=== PATIENT | male | born 1940 | race Caucasian/White ===

== ENCOUNTER 2020-10-26 08:52 | Inpatient (IN) | payer MEDICARE, MEDICAID, SELFPAY ==
[2020-10-26] VITALS (46 sets, daily range): BP systolic 99–163; BP diastolic 65–101; PULSE 70–191; RESP 12–36; TEMP 36.1–36.6; O2SAT 90–100
--- NOTE | ~2020-10-26 | XR_ITS ---
EXAMINATION: XR chest 1V portable EXAM DATE: 10/26/2020 11:55 INDICATION: Weakness. COVID positive. TECHNIQUE: Portable AP frontal chest x-ray was obtained. There is no prior study for comparison. FINDINGS: Ill-defined small to moderate right and smaller left-sided acute airspace disease, infectio n or edema. The cardiomediastinal silhouette is prominent but magnified on this AP technique. There i s no pneumothorax suspected. There are no pleural effusions. The bones are osteopenic. There are bon y degenerative changes. IMPRESSION: Small to moderate right, small left acute edema or pneumonia. Reviewed, dictated and finalized at location B. OUND SALES REPRESENTATIVE
--- NOTE | ~2020-10-26 | US_ITS ---
EXAMINATION: US renal BI DATE: 10/26/2020 15:32 INDICATION: Acute kidney injury TECHNIQUE: Multiple grayscale and Doppler ultrasound images of the kidneys were obtained. COMPARISON: None. FINDINGS: The right kidney measures 10.5 x 5.0 x 5.4 cm. The left kidney measures 11.7 x 4.7 x 6.6 cm . The kidneys demonstrate increased parenchymal echogenicity. There is no hydronephrosis. The bladder is decompressed by Walsh catheter. IMPRESSION: 1. Medical renal disease. Reviewed, dictated and finalized at location A. GAGE FIELD INSPECTOR IMPRESSION: 1. Medical renal disease.
--- NOTE | ~2020-10-26 | CT_ITS ---
EXAMINATION: CT brain wo con EXAM DATE: 10/26/2020 10:07 INDICATION: Change of mental status. Altered mental status. TECHNIQUE: Spiral CT of the head was performed without contrast. Axial, coronal and sagittal images were reviewed. The dose-length product (DLP) for this examination was 681.00 mGy-cm. The exposure w as tailored according to patient size, and iterative reconstruction (ASIR) was used as additional dos e reduction technique. There is no prior study for comparison. FINDINGS: There is no acute intraparenchymal hemorrhage. No evidence of intraparenchymal brain mass lesion. No evidence of acute infarction. Please note that initial head CT has limited sensitivity f or small or acute infarctions. There is moderate periventricular and subcortical hypodensity, nonspec ific but probably related to small vessel ischemic disease. There is moderate prominence of the sul ci and ventricles related to cerebral atrophy. There is intracranial carotid arteriosclerosis. The re are no extra-axial collections. There is no mass effect or midline shift. Patient has had bilate ral ocular lens surgery. Soft tissue is unremarkable. The visualized sinuses and mastoid air cells are well aerated. IMPRESSION: 1. No acute intracranial findings. 2. Chronic age related findings. Reviewed, dictated and finalized at location B. ICK BOAT RUNNER
--- NOTE | ~2020-10-26 | XR_ITS ---
EXAMINATION: XR abdomen obstructive series DATE: 10/26/2020 21:05 INDICATION: Abdominal pain TECHNIQUE: Upright and supine views of the abdomen were obtained. COMPARISON: None. FINDINGS: The bowel gas pattern is nonspecific. No dilated loops of bowel are evident. There is no fr ee intraperitoneal gas. Calcified atherosclerosis is noted. There is mild osteoarthritis of the hips. Moderate lumbar spondylosis is noted. IMPRESSION: 1. Nonspecific bowel gas pattern without acute findings. Reviewed, dictated and finalized at location A. R PUMPING STATION ENGINEER
--- NOTE | 2020-10-26 08:58 | ECG_ITS ---
Measurements Intervals [place] Rate: 179 P: ID: 0 QRS: 15 QRSD: 74 T: 73 QT: 226 QTc: 390 Interpretive Statements ATRIAL FIBRILLATION WITH RAPID VENTRICULAR RESPONSE BASELINE ARTIFACT- I, III, AVR, AVL, AVF ABNORMAL ECG Electronically Signed On 10-26-2020 10:23:09 QUALITATIVE EXECUTIVE RESEARCHER by Ruben Ramirez D.O.
[2020-10-26] MEDS: dilTIAZem HCl INJ 25 MG/5 ML VIAL 10 MG IV PUSH (09:17)
[2020-10-26 09:19] LABS: Basophils Percent Auto 0.1 % (0.2-1.2); Hematocrit 57.4 % (42.0-52.0); Hemoglobin 18.1 g/dL (14.0-18.0); Immature Granulocyte Absolute 0.11 K/mm3 (0.00-0.031); Immature Granulocyte Percent A 0.7 % (0-0.5); Lymphocytes Absolute Auto 1.45 K/mm3 (0.9-3.2); Lymphocytes Percent Auto 8.7 % (18.3-44.2); Mean Corpuscular HGB Conc 31.5 g/dl (32-36); Mean Corpuscular Hemoglobin 28.4 pg (26-34); Mean Corpuscular Volume 90.1 fl (80-100); Mean Platelet Volume 9.6 fl (7.4-10.4); Monocytes Percent Auto 5.8 % (2.6-8.5); Neutrophils Absolute Auto 14.1 K/mm3 (1.3-6.7); Neutrophils Percent Auto 84.7 % (45.5-73.1); Platelet Count Result 347 k/mm3 (150-375); Red Blood Count 6.37 M/mm3 (4.6-6.20); Red Cell Distribution Width 16.8 % (11.5-14.5); White Blood Count 16.6 K/mm3 (4.5-10.0)
[2020-10-26 09:31] LABS: Alanine Aminotransferase 16 U/L (4-50); Albumin Level 3.8 g/dL (3.5-5.1); Alkaline Phosphatase 138 U/L (38-126); Anion Gap 17 mmol/L (8-16); Aspartate Amino Transferase 32 U/L (17-59); Bilirubin,Total 1.2 mg/dL (0.2-1.3); Blood Urea Nitrogen 63 mg/dL (9-20); Calcium 9.2 mg/dL (8.4-10.2); Carbon Dioxide 28 mmol/L (22-30); Chloride 108 mmol/L (98-107); Estimated CRCL calculation 21 ml/min; Estimated Glomerular Filt Rate 26; Glucose 136 mg/dL (75-110); Potassium 3.8 mmol/L (3.4-5.0); Sodium 153 mmol/L (137-145)
--- NOTE | 2020-10-26 09:43 | PC.NURSE ---
Pt's family reports that he is extremely hard of hearing even when speaking closely to his ear. family also reports that pt has long hx of dilated pupil.
[2020-10-26 09:53] LABS: Add Urine Microscopic? YES; Appearance Urine Cloudy (Clear); Bacteria Urine 4+ /hpf; Bilirubin Urine Negative (Negative); Blood Urine 3+ (Negative); Color Urine Red (Yellow); Glucose Urine UA Negative (Negative); Hyaline Casts Urine 50+ /lpf; Ketones Urine Negative (Negative); Leukocyte Esterase Ur 3+ LEU/UL (Negative); Mucus Urine Heavy /lpf; Nitrate Urine Negative (Negative); Protein Urine 2+ mg/dL (Negative); RBC Urine >75 /hpf (0-2); Specific Grav Ur 1.009 (1.001-1.035); Squamous Epithelial Cell Urine Many /hpf (Few); Urobilinogen Urine Negative mg/dL (<2.0); WBC Clumps Urine Present /HPF; WBC Urine >75 /hpf
--- NOTE | 2020-10-26 09:54 | ED.GENADULT ---
HPI - General Adult General Chief complaint: Altered Mental Status Stated complaint: AMS Time Seen by Provider: 10/26/20 09:06 Source: EMS Mode of arrival: EMS Limitations: dementia History of Present Illness HPI narrative: 80 years old white male came from skilled nursing because of increased confusion over the last 2 hours prior to arrival. Patient mental status baseline is confusion and disorientation. Patient also not been eating or drinking well over the last few days. Patient is Covid positive on October 13. The skilled nursing denies any history of fever, chills, nausea, vomiting. Patient usually does not use oxygen. Currently on 2 L with oxygenation up to 96% Patient also have chronic indwelling Walsh catheter. Currently patient is full code. I spoke to the patient daughter who trying to change the CODE STATUS to DNR in the next few hours. Related Data Home Medications Medication Instructions Recorded Confirmed buspirone mg 10/26/20 collagenase clostridium histo. TOPICAL 10/26/20 [Santyl] diltiazem HCl PO 10/26/20 finasteride mg 10/26/20 gabapentin 10/26/20 hydrocodone-acetaminophen 10/26/20 omeprazole 10/26/20 pentoxifylline mg PO 10/26/20 potassium chloride meq PO 10/26/20 tamsulosin mg PO 10/26/20 warfarin 10/26/20 warfarin 10/26/20 warfarin 10/26/20 Allergies Allergy/AdvReac Type Severity Reaction Status Date / Time No Known Allergies Allergy Verified 10/26/20 09:03 Review of Systems Review of Systems: ROS unobtainable: Yes unobtainable due to medical condition [facility] Past Medical History Medical History (Updated 10/26/20 @ 12:23 by Dwaine Osorio MD) Atrial fibrillation with rapid ventricular response Dementia Hypertension Social History Social History (Updated 10/26/20 @ 11:01 by Dwaine Osorio MD) Social History: Patient does not smoke or drink or use drugs Second hand tobacco smoke exposure: No Gender identity (if verbalized by the patient): Male Exam Narrative: Exam Narrative: General appearance: Well-developed, malnourished Skin: Pale Head: Normocephalic, nontraumatic Eyes: Clear conjunctiva ENT: Oropharynx normal, ears normal, nose normal Neck: Supple, nontender Chest and respiratory: Airway patent, no respiratory distress, no accessory muscle use Heart: Tachycardia, irregular irregularity Abdomen: Soft, nontender, no organomegaly, quiet bowel sounds Vascular: Normal peripheral pulses, normal capillary refill. Musculoskeletal: Normal range of motion, nontender back Neurologic: Responding only to painful stimulation Course Course Emergency Course: Improving Vital Signs Vital signs: Vital Signs Pulse Rate 190 H 10/26/20 08:57 Respiratory Rate 30 H 10/26/20 08:57 Pulse Oximetry 94 10/26/20 08:57 Temperature 36.1 C L 10/26/20 09:09 Pulse Rate 146 H 10/26/20 09:46 Respiratory Rate 26 H 10/26/20 09:46 Blood Pressure 114/65 10/26/20 09:46 Pulse Oximetry 99 10/26/20 09:46 Medical Decision Making MDM Narrative Medical decision making narrative: Increased confusion, lethargy, status post Covid infection October 13. Labs, EKG, chest x-ray, IV fluid ordered. Further plan to follow Differential Diagnosis Differential Diagnosis: A. fib with RVR, urinary tract infection, electrolyte imbalance, dehydration, pneumonia Vital Signs Vital Signs: Vital Signs Pulse Rate 190 H 10/26/20 08:57 Respiratory Rate 30 H 10/26/20 08:57 Pulse Oximetry 94 10/26/20 08:57 Temperature 36.1 C L 10/26/20 09:09 Pulse Rate 146 H 10/26/20 09:46 Respiratory Rate 26 H 10/26/20 09:46 Blood Pressure 114/65 10/26/20 09:46 Pulse Oximetry 99 12/2
[2020-10-26] MEDS: SODIUM CHLORIDE 0.9% IV 1,000 ML 999 ML IV CONT (10:15)
[2020-10-26 11:57] LABS: Lactic Acid Reflex 3.6 mmol/L (0.7-2.1)
[2020-10-26 11:58] LABS: Partial Thromboplastin Time 53.8 SECONDS (22.3-36.8)
[2020-10-26 12:00] LABS: CRP 4.4 mg/dL (<1.0)
[2020-10-26 12:25] LABS: INR 9.4
--- NOTE | 2020-10-26 13:22 | PM.IMHP ---
H&P: HPI History of Present Illness Date/Time: 10/26/20 13:22 Chief Complaint: altered mental status Narrative: Rayshawn Hay is a 80 year old male with dementia and HTN brought into the ED from the [facility] after being found more confused. He is awake but nonverbal and thus unable to provide history. Per the ED notes, patient had: increased confusion over the last 2 hours prior to arrival. Patient mental status baseline is confusion and disorientation. Patient also not been eating or drinking well over the last few days. Patient is COVID positive on October 13. The [facility]pc denies any history of fever, chills, nausea, vomiting. Patient usually does not use oxygen. Currently on 2 L with oxygenation up to 96%. Patient also have chronic indwelling Walsh catheter. Currently patient is full code. I spoke to the patient daughter who trying to change the CODE STATUS to DNR in the next few hours. In the ED, patient was hypothermic with tachycardia and tachypnea. He was noted to have AFib with RVR, UTI, hypernatremia and renal failure. CT brain showing no acute findings. CXR showing R>L airspace disease. INR 9.4. AG 17 with Lactic of 3.6. Treated with Rocephin and Azithromycin, IV fluids and started on Diltiazem drip. Patient admitted to IMU for further care. Spoke with dtr. Patient does speak but does have [place]. She last saw him about 2 weeks ago. Patient more belligerent 7-10 days ago and not eating past week. He was on abx for the left foot wound already. Over the weekend, some improvement but still not eating. Urine was concentrated. Overnight, the oxygen level dropped and patient very lethargic which prompted transfer to ED. Patient does have frequent UTIs. Has chronic Walsh for BPH and chronic AFib on Warfarin. Review of Systems Review of Systems: ROS unobtainable: Yes unobtainable due to mental status PMFSH Past Medical History Medical History (Updated 10/26/20 @ 14:49 by Joao Mccarthy MD) Atrial fibrillation with rapid ventricular response BPH w urinary obs/LUTS Dementia Hypertension Surgical History Surgical History (Updated 10/26/20 @ 14:32 by Joao Mccarthy MD) Hx of eye surgery Left with chronic dilation Family History Family History Mother Heart disease Diabetes mellitus Social History Social History (Updated 10/26/20 @ 14:37 by Joao Mccarthy MD) Social History: Patient is a lifelong nonsmoker. . Lives in [facility] x 18 months. No drug use or hx of alcohol abuse. Full code. No POA but Kamilla Marie is surrogate. Smoking status: Unknown if ever smoked Second hand tobacco smoke exposure: No Alcohol intake: unknown Substance use: unknown Gender identity (if verbalized by the patient): Male Spiritual care concerns: No Meds Home Medications and Allergies Home Medications Medication Instructions Recorded Confirmed Type acetaminophen 325 mg PO Q4H PRN 10/26/20 10/26/20 History alprazolam 0.25 mg PO DAILY 10/26/20 10/26/20 History alprazolam 0.25 mg PO Q6H PRN 10/26/20 10/26/20 History buspirone 5 mg PO BID 10/26/20 10/26/20 History collagenase clostridium histo. 1 applic TOPICAL DAILY 10/26/20 10/26/20 History [Santyl] diltiazem HCl 240 mg PO DAILY 10/26/20 10/26/20 History docusate sodium 100 mg PO DAILY 10/26/20 10/26/20 History finasteride 5 mg PO DAILY 10/26/20 10/26/20 History gabapentin 100 mg PO HS 10/26/20 10/26/20 History hydrocodone-acetaminophen 1 tablet PO BID 10/26/20 10/26/20 History hydrocodone-acetaminophen 1 tablet PO DAILY PRN 10/26/20 10/26/20 History melatonin 5 mg PO HS 10/26/20 10/26/20 History omeprazole 10 mg PO DAILY 10/26/20 10/26/20 History pentoxifylline 400 mg PO TIDWM 10/26/20 10/26/20 History polyethylene glycol 3350 [Miralax] 17 g PO DAILY PRN 10/26/20 10/26/20 History potassium chloride 20 meq PO DAILY 10/26/20 10/26/20 History psyllium [Metamu
--- NOTE | 2020-10-26 13:35 | PC.NURSE ---
This patient, Rayshawn Hay, was admitted to IMU Room 202-01. Patient/family oriented to hospital policies and general routines including ID bracelet, bed and alarms, visiting hours, pain management, procedures, bathroom and other care routines, personal items, smoking policy, room service/diet, and visiting hours. Information on how to activate the Rapid Response Team has been discussed. Patient/Family are encouraged to report perceived risks to care and to ask questions if they do not understand what they are told or what they should do.
[2020-10-26 14:40] LABS: Reflex Lactic Acid Yes or No Add Lactic
[2020-10-26] MEDS: SODIUM CHLORIDE 0.9% IV 1,000 ML 125 ML IV CONT (14:50)
[2020-10-26 15:19] LABS: Lactic Acid 1.7 mmol/L (0.7-2.1)
[2020-10-26 15:36] LABS: Anion Gap 8 mmol/L (8-16); Blood Urea Nitrogen 63 mg/dL (9-20); Calcium 8.2 mg/dL (8.4-10.2); Carbon Dioxide 28 mmol/L (22-30); Chloride 112 mmol/L (98-107); Estimated CRCL calculation 27 ml/min; Estimated Glomerular Filt Rate 34; Glucose 193 mg/dL (75-110); Potassium 2.9 mmol/L (3.4-5.0); Sodium 148 mmol/L (137-145)
[2020-10-26] MEDS: PHYTONADIONE INJ 10 MG/ML AMP SUB-Q (16:11)
[2020-10-27] VITALS (17 sets, daily range): BP systolic 101–113; BP diastolic 54–71; PULSE 79–95; RESP 14–20; TEMP 35.9–36.6; O2SAT 88–98; BMI 20.2
[2020-10-27] MEDS: SODIUM CHLORIDE 0.9% IV 1,000 ML 125 ML IV CONT ×2 (03:56→10:40)
[2020-10-27 06:40] LABS: Basophils Percent Auto 0.1 % (0.2-1.2); Hematocrit 48.7 % (42.0-52.0); Hemoglobin 15.3 g/dL (14.0-18.0); Immature Granulocyte Absolute 0.08 K/mm3 (0.00-0.031); Immature Granulocyte Percent A 0.6 % (0-0.5); Lymphocytes Absolute Auto 0.91 K/mm3 (0.9-3.2); Lymphocytes Percent Auto 6.6 % (18.3-44.2); Mean Corpuscular HGB Conc 31.4 g/dl (32-36); Mean Corpuscular Hemoglobin 28.2 pg (26-34); Mean Corpuscular Volume 89.9 fl (80-100); Mean Platelet Volume 9.6 fl (7.4-10.4); Monocytes Absolute Auto 0.7 K/mm3 (0.1-0.6); Monocytes Percent Auto 5.1 % (2.6-8.5); Neutrophils Absolute Auto 12.1 K/mm3 (1.3-6.7); Neutrophils Percent Auto 87.6 % (45.5-73.1); Platelet Count Result 211 k/mm3 (150-375); Red Blood Count 5.42 M/mm3 (4.6-6.20); Red Cell Distribution Width 15.6 % (11.5-14.5); White Blood Count 13.8 K/mm3 (4.5-10.0)
[2020-10-27 06:52] LABS: Alanine Aminotransferase 11 U/L (4-50); Albumin Level 2.7 g/dL (3.5-5.1); Alkaline Phosphatase 94 U/L (38-126); Anion Gap 5 mmol/L (8-16); Aspartate Amino Transferase 24 U/L (17-59); Blood Urea Nitrogen 53 mg/dL (9-20); Carbon Dioxide 30 mmol/L (22-30); Chloride 114 mmol/L (98-107); Estimated CRCL calculation 37 ml/min; Estimated Glomerular Filt Rate 53; Glucose 127 mg/dL (75-110); Magnesium 2.4 mg/dL (1.6-2.3); Phosphorus 2.8 mg/dL (2.5-4.5); Potassium 3.6 mmol/L (3.4-5.0); Sodium 149 mmol/L (137-145)
[2020-10-27 07:13] LABS: INR 4.9; Prothrombin Time 46.2 Seconds (11.1-14.7)
[2020-10-27 07:58] LABS: Folic Acid 6.3 ng/mL (2.76->20)
[2020-10-27] MEDS: SILVERGEL (ELTA) 45 ML 1 APPLIC TOPICAL (10:40)
--- NOTE | 2020-10-27 11:26 | PM.IMPN ---
Progress Note: A&P Assessment and Plan (1) Sepsis: Code(s): A41.9 - Sepsis, unspecified organism Status: Acute Assessment and Plan: On admission with tachycardia, encephalopathy, tachypnea, leukocytosis and lactic acidosis. Sources most likely urinary but consider also pneumonia. Abdominal pain noted and more likely related to pyelonephritis and KUB neg. Patient will be continued on IV fluids here. Repeat lactic acid normal Continue IV antibiotics. . Cr 1.3 and Na 149. Continue IV fluids. Resume home meds when more awake and alert. May need speech to see change to .45Nacl (2) Atrial fibrillation with rapid ventricular response: Code(s): I48.91 - Unspecified atrial fibrillation Status: Acute Assessment and Plan: Heart rate better controlled with the IV diltiazem. Continue IV diltiazem for now. Will need to assess swallowing function prior to starting oral medications. May need to increase diltiazem since where currently under treating him when considering his home dose. INR is supratherapeutic. but down to 4.9 today. Secondary to sepsis and poor po intaked (3) Kidney failure: Qualifiers: Renal failure chronicity: unspecified chronicity Qualified Code(s): N19 - Unspecified kidney failure Code(s): N19 - Unspecified kidney failure Status: Acute Assessment and Plan: BUN 53 with and creatinine 1.3 with ratio greater than 20 to suggest pre renal azotemia. Continue IV fluids. renal ultrasound no obstruction. Walsh catheter secured. Monitor urine output closely. (4) Urinary tract infection associated with indwelling urethral catheter: Qualifiers: Encounter type: initial encounter Qualified Code(s): T83.511A - Infection and inflammatory reaction due to indwelling urethral catheter, initial encounter; N39.0 - Urinary tract infection, site not specified Code(s): T83.511A - Infection and inflammatory reaction due to indwelling urethral catheter, initial encounter; N39.0 - Urinary tract infection, site not specified Status: Acute Assessment and Plan: Complicated UTI with chronic indwelling Walsh catheter. UA consistent with UTI. Urine and blood cultures collected. Continue Rocephin. . (5) Hypernatremia: Code(s): E87.0 - Hyperosmolality and hypernatremia Status: Acute Assessment and Plan: Sodium 149 today. Suspect related to dehydration. IV fluids continue and change to .45 Nacl now that rehydated with high Na (6) Pneumonia: Qualifiers: Laterality: left Lung location: lower lobe of lung Pneumonia type: due to unspecified organism Qualified Code(s): J18.9 - Pneumonia, unspecified organism Code(s): J18.9 - Pneumonia, unspecified organism Status: Acute Assessment and Plan: Chest x-ray was reviewed. Patient may have aspiration pneumonia especially if he was becoming weaker over the past 7-10 days. Continue IV fluids. NPO status. Speech therapy to evaluate. Continue Rocephin and azithromycin for now but consider covering for aspiration if there is evidence of dysphagia or other concerns. Currently 100% on 2 L. wean oxygen as tolerated. (7) Coagulopathy: Code(s): D68.9 - Coagulation defect, unspecified Status: Acute Assessment and Plan: PT and PTT are elevated with an INR of 9.4 on admission . Related to his warfarin. No evidence of acute blood loss. Which is more indicative of dehydration. INR falling with rehydration. Had one dose of Vit K . Daily INR. (8) Dementia: Code(s): F03.90 - Unspecified dementia without behavioral disturbance Status: Acute Assessment and Plan: Patient is alert and nonverbal today. Daughter states patient does speak at times. Patient probably encephalopathic related to above. This should improve with above treatment. (9) Hypertension: Code(s): I10 - Essential (primary)
[2020-10-27] MEDS: THIAMINE HCL 200 MG/2 ML VIAL 100 MG IV PUSH (12:36)
[2020-10-27] MEDS: SODIUM CHLORIDE 0.45% 1,000 ML 100 ML IV CONT (20:06)
[2020-10-28] VITALS (15 sets, daily range): BP systolic 98–122; BP diastolic 49–70; PULSE 66–99; RESP 16–20; TEMP 36–36.6; O2SAT 90–100
[2020-10-28] MEDS: SODIUM CHLORIDE 0.45% 1,000 ML 100 ML IV CONT ×2 (05:42→20:01)
[2020-10-28 06:39] LABS: Basophils Percent Auto 0.2 % (0.2-1.2); Hematocrit 40.9 % (42.0-52.0); Hemoglobin 12.8 g/dL (14.0-18.0); Immature Granulocyte Absolute 0.19 K/mm3 (0.00-0.031); Immature Granulocyte Percent A 1.4 % (0-0.5); Lymphocytes Absolute Auto 1.21 K/mm3 (0.9-3.2); Lymphocytes Percent Auto 9.2 % (18.3-44.2); Mean Corpuscular HGB Conc 31.3 g/dl (32-36); Mean Corpuscular Hemoglobin 27.9 pg (26-34); Mean Corpuscular Volume 89.1 fl (80-100); Monocytes Absolute Auto 0.7 K/mm3 (0.1-0.6); Monocytes Percent Auto 5.3 % (2.6-8.5); Neutrophils Percent Auto 83.9 % (45.5-73.1); Platelet Count Result 194 k/mm3 (150-375); Red Blood Count 4.59 M/mm3 (4.6-6.20); Red Cell Distribution Width 15.4 % (11.5-14.5); White Blood Count 13.1 K/mm3 (4.5-10.0)
[2020-10-28 07:19] LABS: Anion Gap 6 mmol/L (8-16); Blood Urea Nitrogen 41 mg/dL (9-20); Calcium 7.8 mg/dL (8.4-10.2); Carbon Dioxide 25 mmol/L (22-30); Chloride 116 mmol/L (98-107); Creatine Kinase 30 U/L (55-170); Estimated CRCL calculation 57 ml/min; Estimated Glomerular Filt Rate > 60; Glucose 99 mg/dL (75-110); Magnesium 2.3 mg/dL (1.6-2.3); Phosphorus 1.9 mg/dL (2.5-4.5); Potassium 3.5 mmol/L (3.4-5.0); Sodium 147 mmol/L (137-145)
[2020-10-28] MEDS: THIAMINE HCL 200 MG/2 ML VIAL 100 MG IV PUSH (09:15)
[2020-10-28] MEDS: SILVERGEL (ELTA) 45 ML 1 APPLIC TOPICAL (09:16)
--- NOTE | 2020-10-28 11:35 | PCSTNOTE ---
Please refer to the Bedside Swallow Evaluation in the EMR. Please note, silent aspiration cannot be ruled out at bedside.
[2020-10-28] MEDS: POTASSIUM PHOS,M-BASIC-D-BASIC 20 MMOL in SODIUM CHLORIDE 0.9% IV 250 ML 64 MMOL IVPB (14:53)
--- NOTE | 2020-10-28 15:10 | PM.IMPN ---
Progress Note: A&P Assessment and Plan (1) Sepsis: Code(s): A41.9 - Sepsis, unspecified organism Status: Acute Assessment and Plan: On admission with tachycardia, encephalopathy, tachypnea, leukocytosis and lactic acidosis. Sources most likely urinary but consider also pneumonia. Abdominal pain was noted and more likely related to pyelonephritis and KUB neg. Patient will be continued on IV fluids here. Repeat lactic acid normal Continue IV antibiotics. . Cr 0.9 and Na 147. Continue IV fluids. Resume home meds when more awake and alert. speech to see .45Nacl with elevated sodium (2) Atrial fibrillation with rapid ventricular response: Code(s): I48.91 - Unspecified atrial fibrillation Status: Acute Assessment and Plan: Heart rate better controlled with the IV diltiazem. And will taper off. Will need to assess swallowing function prior to starting oral medications. May need to increase diltiazem since where currently under treating him when considering his home dose. INR is supratherapeutic. but down to 4.9 10/27. Secondary to sepsis and poor po intaked, recheck a.m. 10/29 (3) Kidney failure: Qualifiers: Renal failure chronicity: unspecified chronicity Qualified Code(s): N19 - Unspecified kidney failure Code(s): N19 - Unspecified kidney failure Status: Acute Assessment and Plan: BUN 41 with and creatinine 0.9 with ratio greater than 20 to suggest pre renal azotemia. Continue IV fluids. renal ultrasound no obstruction. Walsh catheter secured. Monitor urine output closely. (4) Urinary tract infection associated with indwelling urethral catheter: Qualifiers: Encounter type: initial encounter Qualified Code(s): T83.511A - Infection and inflammatory reaction due to indwelling urethral catheter, initial encounter; N39.0 - Urinary tract infection, site not specified Code(s): T83.511A - Infection and inflammatory reaction due to indwelling urethral catheter, initial encounter; N39.0 - Urinary tract infection, site not specified Status: Acute Assessment and Plan: Complicated UTI with chronic indwelling Walsh catheter. UA consistent with UTI. Urine and blood cultures collected. Continue Rocephin. . Blood culture 1 growing Staph epi thought to be contaminant and others negative Urine culture still pending (5) Hypernatremia: Code(s): E87.0 - Hyperosmolality and hypernatremia Status: Acute Assessment and Plan: Sodium 147 today. Suspect related to dehydration. IV fluids continue and changed to .45 Nacl now that rehydated with high Na (6) Pneumonia: Qualifiers: Laterality: left Lung location: lower lobe of lung Pneumonia type: due to unspecified organism Qualified Code(s): J18.9 - Pneumonia, unspecified organism Code(s): J18.9 - Pneumonia, unspecified organism Status: Acute Assessment and Plan: Chest x-ray was reviewed. Patient may have aspiration pneumonia especially if he was becoming weaker over the past 7-10 days. Continue IV fluids. NPO status. Speech therapy to evaluate. Continue Rocephin and azithromycin for now but consider covering for aspiration if there is evidence of dysphagia or other concerns. Currently 92% on room air. (7) Coagulopathy: Code(s): D68.9 - Coagulation defect, unspecified Status: Acute Assessment and Plan: PT and PTT are elevated with an INR of 9.4 on admission . Related to his warfarin. No evidence of acute blood loss. Which is more indicative of dehydration. INR falling with rehydration. Had one dose of Vit K . Daily INR. (8) Dementia: Code(s): F03.90 - Unspecified dementia without behavioral disturbance Status: Acute Assessment and Plan: Patient is alert and verbal today l today. Daughter states patient does speak at times. Patient probably encephalopathic related to above.
[2020-10-29] VITALS (14 sets, daily range): BP systolic 95–127; BP diastolic 49–75; PULSE 86–111; RESP 16–24; TEMP 36–36.7; O2SAT 94–100
[2020-10-29] MEDS: SODIUM CHLORIDE 0.45% 1,000 ML 100 ML IV CONT (05:06)
[2020-10-29 05:38] LABS: Basophils Percent Auto 0.3 % (0.2-1.2); Hematocrit 37.6 % (42.0-52.0); Hemoglobin 11.7 g/dL (14.0-18.0); Immature Granulocyte Absolute 0.23 K/mm3 (0.00-0.031); Immature Granulocyte Percent A 2.2 % (0-0.5); Lymphocytes Absolute Auto 0.91 K/mm3 (0.9-3.2); Lymphocytes Percent Auto 8.9 % (18.3-44.2); Mean Corpuscular HGB Conc 31.1 g/dl (32-36); Mean Corpuscular Hemoglobin 27.7 pg (26-34); Mean Corpuscular Volume 88.9 fl (80-100); Mean Platelet Volume 10.2 fl (7.4-10.4); Monocytes Absolute Auto 0.6 K/mm3 (0.1-0.6); Monocytes Percent Auto 5.7 % (2.6-8.5); Neutrophils Absolute Auto 8.5 K/mm3 (1.3-6.7); Neutrophils Percent Auto 82.9 % (45.5-73.1); Platelet Count Result 159 k/mm3 (150-375); Red Blood Count 4.23 M/mm3 (4.6-6.20); Red Cell Distribution Width 15.5 % (11.5-14.5); White Blood Count 10.3 K/mm3 (4.5-10.0)
[2020-10-29 05:47] LABS: INR 1.4; Prothrombin Time 18.2 Seconds (11.1-14.7)
[2020-10-29 06:01] LABS: Anion Gap 3 mmol/L (8-16); Blood Urea Nitrogen 26 mg/dL (9-20); Calcium 7.5 mg/dL (8.4-10.2); Carbon Dioxide 27 mmol/L (22-30); Chloride 114 mmol/L (98-107); Estimated CRCL calculation 72 ml/min; Estimated Glomerular Filt Rate > 60; Glucose 89 mg/dL (75-110); Magnesium 2.1 mg/dL (1.6-2.3); Phosphorus 2.6 mg/dL (2.5-4.5); Potassium 3.2 mmol/L (3.4-5.0); Sodium 144 mmol/L (137-145)
[2020-10-29] MEDS: SILVERGEL (ELTA) 45 ML 1 APPLIC TOPICAL (08:52)
[2020-10-29] MEDS: THIAMINE HCL 200 MG/2 ML VIAL 100 MG IV PUSH (08:52)
--- NOTE | 2020-10-29 11:37 | PCDIET ---
Nutrition Follow-Up Complete: Nutrition Diagnosis: Inadequate oral intake related to altered mental status as evidenced by NPO diet. Nutrition Goal: Patient to meet estimated nutritional needs. Goal not met. Patient unable to participate in KNIFE SETTER ASSEMBLER evaluation on 10/28/20 and remains NPO. If unable to advance diet in the next 2-3 days and aggressive nutritional therapy is desired, recommend the following: Jevity 1.2 beginning at 20mL/hr and advancing by 20-25mL/hr per day to goal of 65mL/hr. Given 22 hour daily infusion, this will provide 1716kcal, 79g protein and 1154mL free water. Recommend 30mL water flush every 4 hours while IV fluids infusing. Would also consider addition of protein flushes once goal has been achieved. Last recorded weight is 72.6 kg which is increased from last review. Bowel Motility: Small BM documented on 10/28. Labs Reviewed: Hgb (11.7), Hct (37.6), BUN (26), K (3.2), Cl (114), Ca (7.5) Meds Noted: Zithromax, Rocephin, Thiamine, KCl, 0.45NaCl at 45mL/hr Additional Notes: Right hand skin tear, coccyx deep tissue injury, left foot stage IV area, and penis ulcer documented. Will continue to monitor with same goal. Nutrition Monitoring and Evaluation: Follow up in 3 days.
--- NOTE | 2020-10-29 13:46 | PCSTNOTE ---
Please refer to the Bedside Swallow Evaluation in the EMR. Please note, silent aspiration cannot be ruled out at bedside.
--- NOTE | 2020-10-29 16:03 | PM.IMPN ---
Progress Note: A&P Assessment and Plan (1) Sepsis: Code(s): A41.9 - Sepsis, unspecified organism Status: Acute Assessment and Plan: On admission with tachycardia, encephalopathy, tachypnea, leukocytosis and lactic acidosis. Sources most likely urinary but consider also pneumonia. Abdominal pain noted and more likely related to pyelonephritis and KUB neg. Patient will be continued on IV fluids here. Repeat lactic acid normal Continue IV antibiotics. .. Resume home meds when more awake and alert,Still not able to do swallow study with speech. IV .45Nacl (2) Atrial fibrillation with rapid ventricular response: Code(s): I48.91 - Unspecified atrial fibrillation Status: Acute Assessment and Plan: Heart rate better controlled with the IV diltiazem. Stopped IV diltiazem last pm and V response generally 80-100. Will need to assess swallowing function prior to starting oral medications. INR was supratherapeutic. but down to 1.4 today. Secondary to sepsis and poor po intaked (3) Kidney failure: Qualifiers: Renal failure chronicity: unspecified chronicity Qualified Code(s): N19 - Unspecified kidney failure Code(s): N19 - Unspecified kidney failure Status: Acute Assessment and Plan: Bun decreased to 26 with creatinine 0.7 today . Continue IV fluids and decrease to 50 ml/hr . renal ultrasound no obstruction. Walsh catheter secured. Monitor urine output closely. (4) Urinary tract infection associated with indwelling urethral catheter: Qualifiers: Encounter type: initial encounter Qualified Code(s): T83.511A - Infection and inflammatory reaction due to indwelling urethral catheter, initial encounter; N39.0 - Urinary tract infection, site not specified Code(s): T83.511A - Infection and inflammatory reaction due to indwelling urethral catheter, initial encounter; N39.0 - Urinary tract infection, site not specified Status: Acute Assessment and Plan: Complicated UTI with chronic indwelling Walsh catheter. Bc NG but urine ESBL ecoli R to ceftriaxone. WBC has fallen with ceftriaxone but will change to ertapenem. . (5) Hypernatremia: Code(s): E87.0 - Hyperosmolality and hypernatremia Status: Acute Assessment and Plan: Sodium 144 today. Suspect related to dehydration. IV fluids continue with .45 Nacl now with high Na (6) Pneumonia: Qualifiers: Laterality: left Lung location: lower lobe of lung Pneumonia type: due to unspecified organism Qualified Code(s): J18.9 - Pneumonia, unspecified organism Code(s): J18.9 - Pneumonia, unspecified organism Status: Acute Assessment and Plan: Chest x-ray was reviewed. Patient may have aspiration pneumonia especially if he was becoming weaker over the past 7-10 days. Continue IV fluids. NPO status. Speech therapy to evaluate. Continue ertapenem and azithromycin for now but consider covering for aspiration if there is evidence of dysphagia or other concerns. Currently 94% RA (7) Coagulopathy: Code(s): D68.9 - Coagulation defect, unspecified Status: Acute Assessment and Plan: PT and PTT are elevated with an INR of 9.4 on admission . Related to his warfarin. No evidence of acute blood loss. Which is more indicative of dehydration. INR falling with rehydration. Had one dose of Vit K . INR 1.4 and hope to restart warfarin soon (8) Dementia: Code(s): F03.90 - Unspecified dementia without behavioral disturbance Status: Acute Assessment and Plan: Patient is alert and nonverbal today. Daughter states patient does speak at times. Patient probably encephalopathic related to above. This should improve with above treatment. (9) Hypertension: Code(s): I10 - Essential (primary) hypertension Status: Acute Assessment and Plan: Blood pressure noted. Monitor closely give
[2020-10-29] MEDS: ERTAPENEM 1 GM/NS 50 ML 1 GM/50 ML BAG IVPB (17:56)
--- NOTE | 2020-10-29 18:28 | PC.NURSE ---
This patient, Rayshawn Hay, was transferred to [facility] on 10/29/20 at 1828. Personal belongings sent with patient. Report given to MACEY Thompson. Appropriate documentation sent with patient.
--- NOTE | 2020-10-29 18:56 | PC.NURSE ---
Pt received from [facility].
[2020-10-30] VITALS (7 sets, daily range): BP systolic 110–122; BP diastolic 58–78; PULSE 51–93; RESP 16–20; TEMP 35.8–36.9; O2SAT 96–98
[2020-10-30] MEDS: SODIUM CHLORIDE 0.45% 1,000 ML 50 ML IV CONT ×2 (01:28→20:36)
[2020-10-30 06:09] LABS: Basophils Percent Auto 0.4 % (0.2-1.2); Eosinophils Percent Auto 0.1 % (0-4.4); Hematocrit 40.7 % (42.0-52.0); Hemoglobin 12.9 g/dL (14.0-18.0); Immature Granulocyte Absolute 0.15 K/mm3 (0.00-0.031); Immature Granulocyte Percent A 1.8 % (0-0.5); Lymphocytes Absolute Auto 1.05 K/mm3 (0.9-3.2); Lymphocytes Percent Auto 12.5 % (18.3-44.2); Mean Corpuscular HGB Conc 31.7 g/dl (32-36); Mean Corpuscular Hemoglobin 28.1 pg (26-34); Mean Corpuscular Volume 88.7 fl (80-100); Mean Platelet Volume 10.1 fl (7.4-10.4); Monocytes Absolute Auto 0.7 K/mm3 (0.1-0.6); Monocytes Percent Auto 8.1 % (2.6-8.5); Neutrophils Absolute Auto 6.5 K/mm3 (1.3-6.7); Neutrophils Percent Auto 77.1 % (45.5-73.1); Platelet Count Result 157 k/mm3 (150-375); Red Blood Count 4.59 M/mm3 (4.6-6.20); Red Cell Distribution Width 15.2 % (11.5-14.5); White Blood Count 8.4 K/mm3 (4.5-10.0)
[2020-10-30 06:22] LABS: INR 1.2
[2020-10-30 06:29] LABS: Anion Gap 3 mmol/L (8-16); Blood Urea Nitrogen 17 mg/dL (9-20); Calcium 7.7 mg/dL (8.4-10.2); Carbon Dioxide 29 mmol/L (22-30); Chloride 109 mmol/L (98-107); Estimated CRCL calculation 72 ml/min; Estimated Glomerular Filt Rate > 60; Glucose 81 mg/dL (75-110); Phosphorus 2.6 mg/dL (2.5-4.5); Potassium 3.2 mmol/L (3.4-5.0); Sodium 141 mmol/L (137-145)
[2020-10-30] MEDS: THIAMINE HCL 200 MG/2 ML VIAL 100 MG IV PUSH (08:27)
[2020-10-30] MEDS: SILVERGEL (ELTA) 45 ML 1 APPLIC TOPICAL (08:34)
--- NOTE | 2020-10-30 11:26 | PM.IMPN ---
Progress Note: A&P Assessment and Plan (1) Sepsis: Code(s): A41.9 - Sepsis, unspecified organism Status: Acute Assessment and Plan: On admission with tachycardia, encephalopathy, tachypnea, leukocytosis and lactic acidosis. Sources most likely urinary but consider also pneumonia. Abdominal pain noted and more likely related to pyelonephritis and KUB neg. Patient will be continued on IV fluids here. Repeat lactic acid normal Continue IV antibiotics. .. Resume home meds when more awake and alert,Still not able to do swallow study with speech. IV .45Nacl only 50 ml/hr Day #5 IV antibiotics (2) Atrial fibrillation with rapid ventricular response: Code(s): I48.91 - Unspecified atrial fibrillation Status: Acute Assessment and Plan: Heart rate better controlled with the IV diltiazem. Stopped IV diltiazem pm12/30 and V response generally 80-100. Will need to assess swallowing function prior to starting oral medications. INR was supratherapeutic. but down to 1.2 today. INR Elevated Secondary to sepsis and poor po intaked (3) Kidney failure: Qualifiers: Renal failure chronicity: unspecified chronicity Qualified Code(s): N19 - Unspecified kidney failure Code(s): N19 - Unspecified kidney failure Status: Acute Assessment and Plan: Bun decreased to 17 with creatinine 0.7 today . Continue IV fluids and decreased to 50 ml/hr . renal ultrasound no obstruction. Walsh catheter secured. Monitor urine output closely. (4) Urinary tract infection associated with indwelling urethral catheter: Qualifiers: Encounter type: initial encounter Qualified Code(s): T83.511A - Infection and inflammatory reaction due to indwelling urethral catheter, initial encounter; N39.0 - Urinary tract infection, site not specified Code(s): T83.511A - Infection and inflammatory reaction due to indwelling urethral catheter, initial encounter; N39.0 - Urinary tract infection, site not specified Status: Acute Assessment and Plan: Complicated UTI with chronic indwelling Walsh catheter. Bc NG but urine ESBL ecoli R to ceftriaxone. WBC has fallen with ceftriaxone but changed to ertapenem.10/29 (D#5 antibiotics) . (5) Hypernatremia: Code(s): E87.0 - Hyperosmolality and hypernatremia Status: Acute Assessment and Plan: Sodium 141 today. Suspect related to dehydration. IV fluids continue with .45 Nacl now with high Na (6) Pneumonia: Qualifiers: Laterality: left Lung location: lower lobe of lung Pneumonia type: due to unspecified organism Qualified Code(s): J18.9 - Pneumonia, unspecified organism Code(s): J18.9 - Pneumonia, unspecified organism Status: Acute Assessment and Plan: Chest x-ray was reviewed. Patient may have aspiration pneumonia especially if he was becoming weaker over the past 7-10 days. Continue IV fluids. NPO status. Speech therapy to evaluate. Continue ertapenem and azithromycin for now since he is clinically improving. . Currently 98% RA (7) Coagulopathy: Code(s): D68.9 - Coagulation defect, unspecified Status: Acute Assessment and Plan: PT and PTT are elevated with an INR of 9.4 on admission . Related to his warfarin. No evidence of acute blood loss. Which is more indicative of dehydration. INR falling with rehydration. Had one dose of Vit K . INR 1.2 and hope to restart warfarin soon (8) Dementia: Code(s): F03.90 - Unspecified dementia without behavioral disturbance Status: Acute Assessment and Plan: Patient is alert and nonverbal today. Daughter states patient does speak at times. Patient probably encephalopathic related to above. This should improve with above treatment. (9) Hypertension: Code(s): I10 - Essential (primary) hypertension Status: Acute Assessment and Plan: Blood pressure noted.
--- NOTE | 2020-10-30 15:40 | PCDIET ---
Nutrition Follow-Up Complete: Inadequate oral intake related to altered mental status as evidenced by NPO diet. Patient to meet estimated nutritional needs. Goal: Goal not met. Continue goal. Pt current nutrition is NPO. Nutrition recommendation: Recommend nutrition plan after communication from family Last recorded weight is 67.3 kg, down from 72.6kg; -1025 I/O Bowel Motility: BM today Labs Reviewed: K 3.2 Meds Noted: Thiamin, Zithromax Additional Notes: Pt is day five NPO. MD states he is more arousable today but speech states he is unable to participate in a swallow study. Spoke with MD today and he plans to reach out to family to see what their desires are; hospice and comfort feeds or enteral nutrition. If aggressive nutritional therapy is desired, recommend Jevity 1.2 beginning at 10mL/hr and advancing by 5mL q 6 hrs to goal of 65mL/hr. Slow advance to goal appropriate given long NPO period to prevent refeeding syndrome. At goal,pt will get 1716kcal, 79g protein and 1154mL free water. Recommend 30mL water flush every 4 hours while IV fluids infusing. Following every 3 days.
[2020-10-30] MEDS: ERTAPENEM 1 GM/NS 50 ML 1 GM/50 ML BAG IVPB (17:02)
[2020-10-31 04:00] VITALS: BP 118/72; PULSE 68; RESP 16; TEMP 36.7; O2SAT 94
[2020-10-31 06:10] LABS: Anion Gap 3 mmol/L (8-16); Blood Urea Nitrogen 15 mg/dL (9-20); Calcium 7.8 mg/dL (8.4-10.2); Carbon Dioxide 30 mmol/L (22-30); Chloride 105 mmol/L (98-107); Estimated CRCL calculation 70 ml/min; Estimated Glomerular Filt Rate > 60; Glucose 84 mg/dL (75-110); Potassium 3.4 mmol/L (3.4-5.0); Sodium 138 mmol/L (137-145)
[2020-10-31 08:00] VITALS: BP 115/72; PULSE 110; RESP 18; TEMP 36.1; O2SAT 93
[2020-10-31] MEDS: THIAMINE HCL 200 MG/2 ML VIAL 100 MG IV PUSH (08:57)
[2020-10-31] MEDS: SILVERGEL (ELTA) 45 ML 1 APPLIC TOPICAL (08:58)
--- NOTE | 2020-10-31 10:33 | PCSTNOTE ---
Please refer to the Bedside Swallow Evaluation in the EMR. Please note, silent aspiration cannot be ruled out at bedside.
[2020-10-31] MEDS: POTASSIUM CHLORIDE 20 MEQ TABLET 40 MEQ PO (11:43)
[2020-10-31] MEDS: FINASTERIDE 5 MG TABLET PO (11:44)
[2020-10-31] MEDS: PENTOXIFYLLINE 400 MG TABCR PO ×2 (11:45→17:54)
[2020-10-31] MEDS: PANTOPRAZOLE SOD SESQUIHYDRATE 20 MG TAB PO (11:45)
[2020-10-31] MEDS: dilTIAZem HCL CD 180 MG CAP.ER.24H PO (11:54)
[2020-10-31 12:00] VITALS: BP 101/65; PULSE 86; RESP 16; TEMP 36.1; O2SAT 97
[2020-10-31] MEDS: ALPRAZolam (*CRX) 0.25 MG TABLET PO (12:40)
[2020-10-31] MEDS: ERTAPENEM 1 GM/NS 50 ML 1 GM/50 ML BAG IVPB (15:17)
[2020-10-31 16:00] VITALS: BP 99/49; PULSE 67; RESP 16; TEMP 35.8; O2SAT 96
--- NOTE | 2020-10-31 16:11 | PM.IMPN ---
Progress Note: A&P Assessment and Plan (1) Sepsis: Code(s): A41.9 - Sepsis, unspecified organism Status: Acute Assessment and Plan: On admission with tachycardia, encephalopathy, tachypnea, leukocytosis and lactic acidosis. Sources most likely urinary but consider also pneumonia. Abdominal pain noted and more likely related to pyelonephritis and KUB neg. Patient will be continued on IV fluids here. Repeat lactic acid normal Continue IV antibiotics. .. Resume home meds today since more alert and passed beside swallow study with speech. IV .45Nacl only 50 ml/hr can d/c 1/ Day #6 IV antibiotics (2) Atrial fibrillation with rapid ventricular response: Code(s): I48.91 - Unspecified atrial fibrillation Status: Acute Assessment and Plan: Heart rate better controlled with the IV diltiazem. Stopped IV diltiazem pm12/30 and V response generally 80-100. restart diltiazem at 180 qd and restart warfarin INR Elevated Secondary to sepsis and poor po intaked (3) Kidney failure: Qualifiers: Renal failure chronicity: unspecified chronicity Qualified Code(s): N19 - Unspecified kidney failure Code(s): N19 - Unspecified kidney failure Status: Acute Assessment and Plan: Bun decreased to 17 with creatinine 0.7 today . Continue IV fluids and decreased to 50 ml/hr . renal ultrasound no obstruction. Walsh catheter secured. Monitor urine output closely. (4) Urinary tract infection associated with indwelling urethral catheter: Qualifiers: Encounter type: initial encounter Qualified Code(s): T83.511A - Infection and inflammatory reaction due to indwelling urethral catheter, initial encounter; N39.0 - Urinary tract infection, site not specified Code(s): T83.511A - Infection and inflammatory reaction due to indwelling urethral catheter, initial encounter; N39.0 - Urinary tract infection, site not specified Status: Acute Assessment and Plan: Complicated UTI with chronic indwelling Walsh catheter. Bc NG but urine ESBL ecoli R sens to ceftriaxone. WBC has fallen with ceftriaxone but changed to ertapenem.10/29 (D#6 antibiotics) . (5) Hypernatremia: Code(s): E87.0 - Hyperosmolality and hypernatremia Status: Acute Assessment and Plan: Sodium 138 today. Suspect related to dehydration. IV fluids continue with .45 Nacl now with high Na initially (6) Pneumonia: Qualifiers: Laterality: left Lung location: lower lobe of lung Pneumonia type: due to unspecified organism Qualified Code(s): J18.9 - Pneumonia, unspecified organism Code(s): J18.9 - Pneumonia, unspecified organism Status: Acute Assessment and Plan: Chest x-ray was reviewed. Patient may have aspiration pneumonia especially if he was becoming weaker over the past 7-10 days. Continue IV fluids. speech evaluated and passed bedside swallow today Continue ertapenem and azithromycin for now since he is clinically improving. . Currently 98% RA (7) Coagulopathy: Code(s): D68.9 - Coagulation defect, unspecified Status: Acute Assessment and Plan: PT and PTT are elevated with an INR of 9.4 on admission . Related to his warfarin. No evidence of acute blood loss. Which is more indicative of dehydration. INR falling with rehydration. Had one dose of Vit K . INR 1.2 and warfarin today (8) Dementia: Code(s): F03.90 - Unspecified dementia without behavioral disturbance Status: Acute Assessment and Plan: Patient is alert and verbal today. Daughter states patient does speak at times. Patient probably encephalopathic related to above. improving with above treatment. (9) Hypertension: Code(s): I10 - Essential (primary) hypertension Status: Acute Assessment and Plan: Blood pressure noted. Monitor closely given the sepsis now that he is on diltiazem. (10) DVT
[2020-10-31] MEDS: SODIUM CHLORIDE 0.45% 1,000 ML 50 ML IV CONT (17:33)
[2020-10-31] MEDS: WARFARIN (*PBKC) 4 MG TABLET 8 MG PO (17:53)
[2020-10-31] MEDS: TAMSULOSIN HCL 0.4 MG CAPSULE PO (17:54)
[2020-10-31] MEDS: busPIRone HCL 5 MG TABLET PO (17:54)
[2020-10-31 20:00] VITALS: BP 127/74; PULSE 89; RESP 16; TEMP 36.3; O2SAT 96
--- NOTE | 2020-10-31 20:06 | PC.NURSE ---
Spoke with Kamilla Marie. Updated her regarding patient dietary intake of 25% of meal, improved/increased communication and overall demeanor. She expressed gratitude and was pleased with the positive changes that the patient has made.
[2020-10-31] MEDS: GABAPENTIN 100 MG CAPSULE PO (20:33)
[2020-10-31] MEDS: MELATONIN 5 MG TABLET PO (20:33)
[2020-11-01] VITALS: BP 112/68; PULSE 89; RESP 17; TEMP 36.3; O2SAT 96
[2020-11-01 05:21] VITALS: BP 199/59; PULSE 102; RESP 20; TEMP 36.6; O2SAT 98
[2020-11-01 06:05] LABS: Basophils Percent Auto 0.2 % (0.2-1.2); Eosinophils Percent Auto 0.3 % (0-4.4); Hematocrit 38.7 % (42.0-52.0); Hemoglobin 12.2 g/dL (14.0-18.0); Immature Granulocyte Absolute 0.08 K/mm3 (0.00-0.031); Immature Granulocyte Percent A 1.3 % (0-0.5); Lymphocytes Absolute Auto 1.02 K/mm3 (0.9-3.2); Lymphocytes Percent Auto 16.2 % (18.3-44.2); Mean Corpuscular HGB Conc 31.5 g/dl (32-36); Mean Corpuscular Hemoglobin 27.9 pg (26-34); Mean Corpuscular Volume 88.6 fl (80-100); Monocytes Absolute Auto 0.7 K/mm3 (0.1-0.6); Monocytes Percent Auto 10.5 % (2.6-8.5); Neutrophils Absolute Auto 4.5 K/mm3 (1.3-6.7); Neutrophils Percent Auto 71.5 % (45.5-73.1); Platelet Count Result 203 k/mm3 (150-375); Red Blood Count 4.37 M/mm3 (4.6-6.20); Red Cell Distribution Width 14.8 % (11.5-14.5); White Blood Count 6.3 K/mm3 (4.5-10.0)
[2020-11-01 06:12] LABS: INR 1.1
[2020-11-01 06:29] LABS: Anion Gap 2 mmol/L (8-16); Blood Urea Nitrogen 14 mg/dL (9-20); Calcium 7.6 mg/dL (8.4-10.2); Carbon Dioxide 29 mmol/L (22-30); Chloride 105 mmol/L (98-107); Estimated CRCL calculation 70 ml/min; Estimated Glomerular Filt Rate > 60; Glucose 82 mg/dL (75-110); Potassium 3.1 mmol/L (3.4-5.0); Sodium 136 mmol/L (137-145)
[2020-11-01 08:00] VITALS: PULSE 104; RESP 16; O2SAT 98
[2020-11-01 09:13] VITALS: BP 118/74; PULSE 100
[2020-11-01] MEDS: FINASTERIDE 5 MG TABLET PO (09:18)
[2020-11-01] MEDS: DOCUSATE SODIUM 100 MG CAPSULE PO (09:18)
[2020-11-01] MEDS: TAMSULOSIN HCL 0.4 MG CAPSULE PO (09:18)
[2020-11-01] MEDS: PANTOPRAZOLE SOD SESQUIHYDRATE 20 MG TAB PO (09:18)
[2020-11-01] MEDS: PENTOXIFYLLINE 400 MG TABCR PO (09:18)
[2020-11-01] MEDS: busPIRone HCL 5 MG TABLET PO (09:19)
[2020-11-01] MEDS: SILVERGEL (ELTA) 45 ML 1 APPLIC TOPICAL (09:20)
--- NOTE | 2020-11-01 09:27 | PC.NURSE ---
Placed crushed medications mixed with applesauce in patient mouth after he had swallowed apple juice immediately prior to giving him medicatio ns. He spit it all out.
[2020-11-01] MEDS: THIAMINE HCL 200 MG/2 ML VIAL 100 MG IV PUSH (11:45)
[2020-11-01 12:25] VITALS: BP 118/73; PULSE 104; RESP 16; TEMP 35.7; O2SAT 98
--- NOTE | 2020-11-01 14:50 | PM.IMPN ---
Progress Note: A&P Assessment and Plan (1) Sepsis: Code(s): A41.9 - Sepsis, unspecified organism Status: Acute Assessment and Plan: On admission with tachycardia, encephalopathy, tachypnea, leukocytosis and lactic acidosis. Sources most likely urinary but consider also pneumonia. Abdominal pain noted and more likely related to pyelonephritis and KUB neg. Patient will be continued on IV fluids here. Repeat lactic acid normal Continue IV antibiotics. .. Resume home meds 10/31/20 since more alert and passed beside swallow study with speech. IV .45Nacl only 50 ml/hr d/c today 11/01 Day #7 IV antibiotics (2) Coagulopathy: Code(s): D68.9 - Coagulation defect, unspecified Status: Acute Assessment and Plan: INR 1.2 PT and PTT are elevated with an INR of 9.4 on admission . Related to his warfarin. No evidence of acute blood loss. Which is more indicative of dehydration. INR falling with rehydration. Had one dose of Vit K . INR 1.2 and warfarin restarted 1 at 8 mg daily (3) Hypertension: Code(s): I10 - Essential (primary) hypertension Status: Acute Assessment and Plan: Blood pressure noted. Restarted diltiazem /. (4) Dementia: Code(s): F03.90 - Unspecified dementia without behavioral disturbance Status: Acute Assessment and Plan: Patient is alert and verbal today. Daughter states patient does speak at times. Patient probably encephalopathic related to above. improving with above treatment. (5) Atrial fibrillation with rapid ventricular response: Code(s): I48.91 - Unspecified atrial fibrillation Status: Acute Assessment and Plan: Heart rate better controlled with the IV diltiazem. Stopped IV diltiazem pm12/30 and V response generally 80-100. restarted diltiazem at 180 qd and restart warfarin both 10/31/2020. INR Elevated Secondary to sepsis and poor po intaked increased diltiazem to 240 qd today 11/01/20 (6) DVT prophylaxis: Code(s): Z29.9 - Encounter for prophylactic measures, unspecified Status: Acute Assessment and Plan: INR was supratherapeutic initially and restarted 1/2 (7) Hypernatremia: Code(s): E87.0 - Hyperosmolality and hypernatremia Status: Acute Assessment and Plan: Sodium 136 today. Suspect related to dehydration. IV fluids stopped today / (8) Urinary tract infection associated with indwelling urethral catheter: Qualifiers: Encounter type: initial encounter Qualified Code(s): T83.511A - Infection and inflammatory reaction due to indwelling urethral catheter, initial encounter; N39.0 - Urinary tract infection, site not specified Code(s): T83.511A - Infection and inflammatory reaction due to indwelling urethral catheter, initial encounter; N39.0 - Urinary tract infection, site not specified Status: Acute Assessment and Plan: Complicated UTI with chronic indwelling Walsh catheter. Bc NG but urine ESBL ecoli R sens to ceftriaxone. WBC has fallen with ceftriaxone but changed to ertapenem.10/29 (D#7 antibiotics) . (9) Pneumonia: Qualifiers: Laterality: left Lung location: lower lobe of lung Pneumonia type: due to unspecified organism Qualified Code(s): J18.9 - Pneumonia, unspecified organism Code(s): J18.9 - Pneumonia, unspecified organism Status: Acute Assessment and Plan: Chest x-ray was reviewed. Patient may have aspiration pneumonia especially if he was becoming weaker over the past 7-10 days. Continue IV fluids. speech evaluated and passed bedside swallow today Continue ertapenem and azithromycin for now since he is clinically improving. . Currently 98% RA (10) Kidney failure: Qualifiers: Renal failure chronicity: unspecified chronicity Qualified Code(s): N19 - Unspecified kidney failure Code(s): N19 - Unspecified kidney failure Status: A
[2020-11-01] MEDS: ERTAPENEM 1 GM/NS 50 ML 1 GM/50 ML BAG IVPB (17:25)
[2020-11-01] MEDS: WARFARIN (*PBKC) 4 MG TABLET 8 MG PO (18:54)
[2020-11-01 20:00] VITALS: BP 103/70; PULSE 90; RESP 16; TEMP 36.1; O2SAT 98
[2020-11-01] MEDS: MELATONIN 5 MG TABLET PO (20:12)
[2020-11-01] MEDS: GABAPENTIN 100 MG CAPSULE PO (20:12)
[2020-11-02] VITALS: BP 109/66; PULSE 97; RESP 16; TEMP 36.1; O2SAT 98
[2020-11-02 05:49] VITALS: BP 100/70; PULSE 98; RESP 12; TEMP 36.1; O2SAT 97
[2020-11-02 06:33] LABS: Anion Gap 2 mmol/L (8-16); Blood Urea Nitrogen 10 mg/dL (9-20); Calcium 7.7 mg/dL (8.4-10.2); Carbon Dioxide 30 mmol/L (22-30); Chloride 104 mmol/L (98-107); Estimated CRCL calculation 79 ml/min; Estimated Glomerular Filt Rate > 60; Glucose 84 mg/dL (75-110); Potassium 3.2 mmol/L (3.4-5.0); Sodium 136 mmol/L (137-145)
[2020-11-02 06:47] LABS: INR 1.2; Prothrombin Time 16.1 Seconds (11.1-14.7)
[2020-11-02 08:00] VITALS: BP 114/68; PULSE 91; RESP 16; TEMP 35.8; O2SAT 99
[2020-11-02] MEDS: THIAMINE HCL 200 MG/2 ML VIAL 100 MG IV PUSH (08:08)
[2020-11-02] MEDS: DOCUSATE SODIUM 100 MG CAPSULE PO (08:10)
[2020-11-02] MEDS: busPIRone HCL 5 MG TABLET PO ×2 (08:10→16:19)
[2020-11-02] MEDS: PANTOPRAZOLE SOD SESQUIHYDRATE 20 MG TAB PO (08:10)
[2020-11-02] MEDS: TAMSULOSIN HCL 0.4 MG CAPSULE PO ×2 (08:10→16:19)
[2020-11-02] MEDS: SILVERGEL (ELTA) 45 ML 1 APPLIC TOPICAL (08:10)
[2020-11-02] MEDS: PENTOXIFYLLINE 400 MG TABCR PO ×3 (08:10→16:19)
[2020-11-02] MEDS: FINASTERIDE 5 MG TABLET PO (08:10)
[2020-11-02 12:00] VITALS: BP 127/70; PULSE 90; RESP 16; TEMP 35.6; O2SAT 98
--- NOTE | 2020-11-02 14:34 | PM.IMPN ---
Progress Note: A&P Assessment and Plan (1) Sepsis: Code(s): A41.9 - Sepsis, unspecified organism Status: Acute Assessment and Plan: On admission with tachycardia, encephalopathy, tachypnea, leukocytosis and lactic acidosis. Sources most likely urinary but consider also pneumonia. Abdominal pain noted and more likely related to pyelonephritis and KUB neg. Repeat lactic acid normal Continue IV antibiotics. .. Resumed home meds 10/31/20 since more alert and passed beside swallow study with speech. IV .45Nacl only 50 ml/hr d/c today 11/01 Day #8 IV antibiotics (2) Coagulopathy: Code(s): D68.9 - Coagulation defect, unspecified Status: Acute Assessment and Plan: INR 1.2 PT and PTT are elevated with an INR of 9.4 on admission . Related to his warfarin. No evidence of acute blood loss. Which is more indicative of dehydration. INR falling with rehydration. Had one dose of Vit K . INR 1.2 and warfarin restarted 10/31 at 8 mg daily (3) Hypertension: Code(s): I10 - Essential (primary) hypertension Status: Acute Assessment and Plan: Blood pressure noted. Restarted diltiazem /. (4) Dementia: Code(s): F03.90 - Unspecified dementia without behavioral disturbance Status: Acute Assessment and Plan: Patient is alert and verbal / but less so today. . Daughter states patient does speak at times. Patient probably encephalopathic related to above. improving with above treatment. (5) Atrial fibrillation with rapid ventricular response: Code(s): I48.91 - Unspecified atrial fibrillation Status: Acute Assessment and Plan: Heart rate better controlled with the IV diltiazem. Stopped IV diltiazem pm12/30 and V response generally 80-100. restarted diltiazem at 180 qd and restart warfarin both 10/31/2020. INR Elevated Secondary to sepsis and poor po intaked increased diltiazem to 240 qd today 11/01/20 (6) DVT prophylaxis: Code(s): Z29.9 - Encounter for prophylactic measures, unspecified Status: Acute Assessment and Plan: INR was supratherapeutic initially and restarted / (7) Hypernatremia: Code(s): E87.0 - Hyperosmolality and hypernatremia Status: Acute Assessment and Plan: Sodium 136 today. Suspect related to dehydration. IV fluids stopped / (8) Urinary tract infection associated with indwelling urethral catheter: Qualifiers: Encounter type: initial encounter Qualified Code(s): T83.511A - Infection and inflammatory reaction due to indwelling urethral catheter, initial encounter; N39.0 - Urinary tract infection, site not specified Code(s): T83.511A - Infection and inflammatory reaction due to indwelling urethral catheter, initial encounter; N39.0 - Urinary tract infection, site not specified Status: Acute Assessment and Plan: Complicated UTI with chronic indwelling Walsh catheter. Bc NG but urine ESBL ecoli R not sens to ceftriaxone. WBC has fallen with ceftriaxone but changed to ertapenem.10/29 (D#8 antibiotics total and D# 5 ertapenem) . Probable need full 7 days of ertapenem (9) Pneumonia: Qualifiers: Laterality: left Lung location: lower lobe of lung Pneumonia type: due to unspecified organism Qualified Code(s): J18.9 - Pneumonia, unspecified organism Code(s): J18.9 - Pneumonia, unspecified organism Status: Acute Assessment and Plan: Chest x-ray was reviewed. Patient may have aspiration pneumonia especially if he was becoming weaker over the past 7-10 days. speech evaluated and passed bedside swallow Continue ertapenem and azithromycin for now since he is clinically improving. . Currently 98% RA (10) Kidney failure: Qualifiers: Renal failure chronicity: unspecified chronicity Qualified Code(s): N19 - Unspecified kidney failure Code(s): N19 - Unspecified kidney failure
[2020-11-02] MEDS: ERTAPENEM 1 GM/NS 50 ML 1 GM/50 ML BAG IVPB (15:25)
[2020-11-02 16:00] VITALS: BP 100/82; PULSE 80; RESP 16; TEMP 35.7; O2SAT 100
[2020-11-02] MEDS: WARFARIN (*PBKC) 4 MG TABLET 8 MG PO (16:19)
--- NOTE | 2020-11-02 16:31 | PC.NURSE ---
Addendum entered by BRADEN Hodges 11/02/20 16:33: Spoke with Dr. Zavaleta this morning about patient being hard to arouse and trouble with waking him up. Original Note: Patient continues to become harder to arouse for medications. Patient remains somnolent during turns, dressing changes, and attempts to wake him up. Attempted medications with applesauce and ice cream. Unaware of how much the patient is getting because he spits things out.
[2020-11-02 18:50] LABS: SARS-CoV-2 RNA PCR Negative
[2020-11-02 19:55] VITALS: BP 133/53; PULSE 88; RESP 12; TEMP 35.9; O2SAT 100
[2020-11-03] VITALS (11 sets, daily range): BP systolic 104–127; BP diastolic 66–73; PULSE 40–89; RESP 12–40; TEMP 35.8–37.1; O2SAT 82–100
[2020-11-03 05:59] LABS: Basophils Percent Auto 0.2 % (0.2-1.2); Eosinophils Absolute Auto 0.1 K/mm3 (0-0.3); Eosinophils Percent Auto 1.5 % (0-4.4); Hematocrit 39.3 % (42.0-52.0); Hemoglobin 12.5 g/dL (14.0-18.0); Immature Granulocyte Absolute 0.05 K/mm3 (0.00-0.031); Immature Granulocyte Percent A 1.1 % (0-0.5); Lymphocytes Absolute Auto 1.02 K/mm3 (0.9-3.2); Lymphocytes Percent Auto 22.3 % (18.3-44.2); Mean Corpuscular HGB Conc 31.8 g/dl (32-36); Mean Corpuscular Hemoglobin 27.4 pg (26-34); Mean Platelet Volume 9.6 fl (7.4-10.4); Monocytes Absolute Auto 0.6 K/mm3 (0.1-0.6); Monocytes Percent Auto 12.5 % (2.6-8.5); Neutrophils Absolute Auto 2.9 K/mm3 (1.3-6.7); Neutrophils Percent Auto 62.4 % (45.5-73.1); Platelet Count Result 234 k/mm3 (150-375); Red Blood Count 4.57 M/mm3 (4.6-6.20); Red Cell Distribution Width 14.7 % (11.5-14.5); White Blood Count 4.6 K/mm3 (4.5-10.0)
[2020-11-03 06:06] LABS: INR 1.2; Prothrombin Time 15.7 Seconds (11.1-14.7)
[2020-11-03] MEDS: THIAMINE HCL 200 MG/2 ML VIAL 100 MG IV PUSH (08:57)
[2020-11-03] MEDS: SILVERGEL (ELTA) 45 ML 1 APPLIC TOPICAL (08:58)
--- NOTE | 2020-11-03 11:22 | P.CDI_ITS ---
CDI Query Clarification Request -Kidney failure, unspecified chronicity has been documented -10/26: BUN 63 creatinine 2.40 GFR 26; 11/02: BUN 10 creatinine 0.60 GFR >60 Please further specify chronicity of renal failure if possible: * Acute * Chronic * Acute on Chronic * Unable to determine
--- NOTE | 2020-11-03 12:29 | PCSTNOTE ---
Patient not appropriate for Bedside swallowing evaluation. Patient to continue on NPO diet.
--- NOTE | 2020-11-03 14:27 | PCNFU ---
Nutrition Follow-Up Complete: Inadequate oral intake related to altered mental status as evidenced by NPO diet. Goal: Patient to meet estimated nutritional needs. Limited progress towards goal. Pt current nutrition is NPO. Last recorded weight is 69.6 kg, up from 66 kg on admit. Bowel Motility:+BM 11/02. Labs Reviewed:Hgb 12.5,Hct 39.3 Meds Noted:Zithromax Additional Notes: Nutrition follow up. Patient currently NPO. Patient was not appropriate for bedside swallow today. He had been on a Soft and bite sized, Level 6 diet, refusing meals. DNR. Patient is at high nutritional risk. If recommending aggressive nutrition therapy: Jevity 1.2 beginning at 10mL/hr and advancing by 5mL q 6 hrs to goal of 65mL/hr. Slowly advance to goal appropriate given long NPO period to prevent refeeding syndrome. Monitoring: Follow up in 3 days.
[2020-11-03] MEDS: ERTAPENEM 1 GM/NS 50 ML 1 GM/50 ML BAG IVPB (16:56)
[2020-11-04 06:09] VITALS: BP 104/66; PULSE 65; RESP 20; TEMP 36; O2SAT 100
[2020-11-04 08:00] VITALS: O2SAT 100
[2020-11-04 08:19] VITALS: BP 115/57; PULSE 107; RESP 20; TEMP 35.9; O2SAT 100
--- NOTE | 2020-11-04 10:02 | PM.IMPN ---
Progress Note: A&P Assessment and Plan (1) Dementia: Code(s): F03.90 - Unspecified dementia without behavioral disturbance Status: Acute Assessment and Plan: Advanced. (2) Kidney failure: Qualifiers: Renal failure chronicity: unspecified chronicity Qualified Code(s): N19 - Unspecified kidney failure Code(s): N19 - Unspecified kidney failure Status: Acute Assessment and Plan: Likely to be pre renal. (3) Hypernatremia: Code(s): E87.0 - Hyperosmolality and hypernatremia Status: Acute Assessment and Plan: Likely poor oral intake Free water deficit (4) Urinary tract infection associated with indwelling urethral catheter: Qualifiers: Encounter type: initial encounter Qualified Code(s): T83.511A - Infection and inflammatory reaction due to indwelling urethral catheter, initial encounter; N39.0 - Urinary tract infection, site not specified Code(s): T83.511A - Infection and inflammatory reaction due to indwelling urethral catheter, initial encounter; N39.0 - Urinary tract infection, site not specified Status: Acute Assessment and Plan: On Ertapenem (5) Pneumonia: Qualifiers: Laterality: left Lung location: lower lobe of lung Pneumonia type: due to unspecified organism Qualified Code(s): J18.9 - Pneumonia, unspecified organism Code(s): J18.9 - Pneumonia, unspecified organism Status: Acute Assessment and Plan: On broad spectrum antibiotics Aspiration is likely (6) Atrial fibrillation with rapid ventricular response: Code(s): I48.91 - Unspecified atrial fibrillation Status: Acute Assessment and Plan: Continue Diltiazem. (7) Hypertension: Code(s): I10 - Essential (primary) hypertension Status: Acute Assessment and Plan: Continue to monitor (8) Acute respiratory failure with hypoxia: Code(s): J96.01 - Acute respiratory failure with hypoxia Status: Acute Assessment and Plan: Started on Ventury mask POA called with update and are leaning towards hospice Patient is currently a DNR Subjective Date/time seen: 11/03/20 10:02 This is a late entry note for 11/03/19 patient was seen and examined on . Review of Systems Review of Systems: Narrative: Unable to obtain as patient is stuporous. Exam Narrative: Exam Narrative: Chronically ill looking. Const: General: ill appearing and other (stuporous.) Nutritional Appearance: thin Orientation/consciousness: oriented to person Limitations: altered mental status Other: Stuporous. HENMT: Head: normocephalic and atraumatic Face and sinus: normal facial exam Eyes: General: appearance normal, both eyes and all related structures Pupils: Equal, round and reactive pupils present EOM: EOMs intact bilaterally Neck: Neck: no lymphadenopathy, supple and no JVD Resp: Auscultation: clear to auscultation bilaterally Cardio: Jugular venous distension: no JVD Rate: regular rate Rhythm: regular rhythm GI: GI Palp: Yes Soft to palpation and Yes No hepatosplenomegaly present Skin: General skin exam: normal color Lesions: no lesions Rashes: no rashes Wounds: no wounds Neuro: General: other (Stuporous.) Extrem: General: no pedal edema Objective Data Vital Signs Vital Signs: Vital Signs - 24 hr 11/03/20 12:00 11/03/20 12:55 11/03/20 13:00 Temperature 97.2 F L Pulse Rate 79 40 L Respiratory Rate 22 H Blood Pressure 104/69 Pulse Oximetry 85 L 92 92 11/03/20 13:19 11/03/20 15:17 11/03/20 16:00 Temperature 97.1 F L Pulse Rate 50 L 86 Respiratory Rate 18 22 H Blood Pressure 127/67 Pulse Oximetry 92 88 L 82 L 11/03/20 20:02 11/03/20 22:43 11/04/20 06:09 Temperature 96.8 F L Pulse Rate 65 Respiratory Rate 40 H 22 H 20 Blood Pressure 104/66 Pulse Oximetry 100 100 11/04/20 08:00 11/04/20 08:19 Temperature 96.7 F L Pulse Rate 107 H Resp
--- NOTE | 2020-11-04 17:21 | PM.DS ---
DS: Admitting Diagnosis Admitting Diagnosis Admitting Diagnosis: Rayshawn Hay is a 80 year old male with advanced Dementia, patient was brought to the hospital due to overall decline, not doing well, renal failure, A. fib with RVR, Pneumonia, AMS. Patient was initially being treated but took a turn for the worse with acute respiratory failure. Daughter was called and decision was made to place the patient on Hospice with comfort care measures only. Daughter is now at bedside. Patient (1) Acute respiratory failure with hypoxia: Code(s): J96.01 - Acute respiratory failure with hypoxia Status: Acute Assessment and Plan: Comfort care measures only. Hospice on board. (2) Dementia: Code(s): F03.90 - Unspecified dementia without behavioral disturbance Status: Acute Assessment and Plan: Comfort care measures only. (3) Atrial fibrillation with rapid ventricular response: Code(s): I48.91 - Unspecified atrial fibrillation Status: Acute Assessment and Plan: Comfort care measures only. (4) Hypernatremia: Code(s): E87.0 - Hyperosmolality and hypernatremia Status: Acute Assessment and Plan: Comfort care measures only. DS: Discharge Diagnosis Discharge Diagnosis (1) Acute respiratory failure with hypoxia: Code(s): J96.01 - Acute respiratory failure with hypoxia Status: Acute (2) Wounds, multiple: Code(s): T07.XXXA - Unspecified multiple injuries, initial encounter Status: Acute (3) Sepsis: Code(s): A41.9 - Sepsis, unspecified organism Status: Acute (4) Coagulopathy: Code(s): D68.9 - Coagulation defect, unspecified Status: Acute (5) Hypertension: Code(s): I10 - Essential (primary) hypertension Status: Acute (6) Dementia: Code(s): F03.90 - Unspecified dementia without behavioral disturbance Status: Acute (7) Atrial fibrillation with rapid ventricular response: Code(s): I48.91 - Unspecified atrial fibrillation Status: Acute (8) Kidney failure: Qualifiers: Renal failure chronicity: unspecified chronicity Qualified Code(s): N19 - Unspecified kidney failure Code(s): N19 - Unspecified kidney failure Status: Acute (9) Hypernatremia: Code(s): E87.0 - Hyperosmolality and hypernatremia Status: Acute (10) Pneumonia: Qualifiers: Laterality: left Lung location: lower lobe of lung Pneumonia type: due to unspecified organism Qualified Code(s): J18.9 - Pneumonia, unspecified organism Code(s): J18.9 - Pneumonia, unspecified organism Status: Acute DS: Summary Hospital Course Hospital Course: Patient was admitted to [facility] due to AMS patient found to have a Pneumonia, A. fib with RVR, acute respiratory hypoxic failure with advanced Dementia. In view of patient's advanced dementia and poor prognosis daughter decided to go ahead with Hospice and comfort care measures only. Patient was discharged to hospice care. Comfort care measures only was started. Chest 1V portable EXAM DATE: 10/26/2020 11:55 INDICATION: Weakness. COVID positive. TECHNIQUE: Portable AP frontal chest x-ray was obtained. There is no prior study for comparison. FINDINGS: Ill-defined small to moderate right and smaller left-sided acute airspace disease, infection or edema. The cardiomediastinal silhouette is prominent but magnified on this AP technique. There is no pneumothorax suspected. There are no pleural effusions. The bones are osteopenic. There are bony degenerative changes. IMPRESSION: Small to moderate right, small left acute edema or pneumonia. EXAMINATION: CT brain wo con EXAM DATE: 10/26/2020 10:07 INDICATION: Change of mental status. Altered mental status. TECHNIQUE: Spiral CT of the head was performed without contrast. Axial, coronal and sagittal images were reviewed. The dose-length product (DLP) for this examination was 681.00 m
--- NOTE | 2020-11-11 18:15 | PM.DDS ---
Discharge Sum: Prov Provider Primary care physician: Hector Workman MD Admitting provider: Xavier Mccarthy MD Consults: 10/26/20 Wound/ET Consult Routine Reason for Consult:: left lateral foot wound 11/03/20 16:49 Care Coordination Consult Routine Comment: [facility] consulted on 11/03/20 Reason for Consult:: Hospice Referral Discharge Sum: Diag Contributing Factors (1) Dementia: (2) Kidney failure: (3) Hypernatremia: (4) Urinary tract infection associated with indwelling urethral catheter: (5) Pneumonia: (6) Atrial fibrillation with rapid ventricular response: (7) Hypertension: (8) Acute respiratory failure with hypoxia: Discharge Sum: Summary Date and Time Date of admission: 10/26/20 12:24 Date of : 11/10/20 Summary Details: Date of and last visit 11/10/2020. Date of this note 11/11/2020 80-year-old demented male originally admitted to the hospital 10/26/2020 with sepsis from urinary tract infection and pneumonia. Was dehydrated with hypernatremia and responded to IV fluids and IV antibiotics with much improvement and even passed a swallow test. He took a turn for the worse though on the and 03 of November and after discussion with his POA daughter it was decided that patient would be placed in hospice. He had a slow downhill course and late on evening of the . Cause of dementia and possible recurrent aspiration pneumonia Additional Data Attending physician: Meghana Pink MD
== END 2020-11-04 12:25 | disposition hospice, inpatient (51) | DRG 871 ==
LOC: ANHED 12:23 → ANHIMU 14:30 → ANH3MED 10-30 01:45 → ANHIMU 11-05 16:01
PROVIDERS: Internal Medicine; Physician Assistant; Admitting Provider Internal Medicine; Emergency Provider Emergency Medicine; PCP Family Medicine; Visit Provider Internal Medicine
DX: A41.9 Sepsis, unspecified organism (principal); J18.9 Pneumonia, unspecified organism; J96.01 Acute respiratory failure with hypoxia; G93.41 Metabolic encephalopathy; J69.0 Pneumonitis due to inhalation of food and vomit; T83.511A Infection and inflammatory reaction due to indwelling urethral catheter, initial encounter; N39.0 Urinary tract infection, site not specified; E87.0 Hyperosmolality and hypernatremia; N17.9 Acute kidney failure, unspecified; I48.20 Chronic atrial fibrillation, unspecified; D68.9 Coagulation defect, unspecified; Z20.822 Contact with and (suspected) exposure to COVID-19; L97.529 Non-pressure chronic ulcer of other part of left foot with unspecified severity; L98.499 Non-pressure chronic ulcer of skin of other sites with unspecified severity; Z66 Do not resuscitate; F03.90 Unspecified dementia, unspecified severity, without behavioral disturbance, psychotic disturbance, mood disturbance, and anxiety; I10 Essential (primary) hypertension; N40.1 Benign prostatic hyperplasia with lower urinary tract symptoms; E86.0 Dehydration; Z79.01 Long term (current) use of anticoagulants
CPT/HCPCS: 36415; 70450; 71045; 74019; 76775; 80048; 80053; 80076; 81001; 82550; 82607; 82746; 83605; 83735; 84100; 84443; 85025; 85610; 85730; 86140; 87040; 87077; 87086; 87088; 87186; 92610; 93005; 96361; 96365; 96375; 99285; A9270; C9803; J0456; J0696; J1335; J3411; J3430; J3480; J7030; J7050; U0003

== ENCOUNTER 2020-11-04 11:30 | HOS | payer OTHER, MEDICARE, MEDICAID, SELFPAY ==
[2020-11-04] MEDS: SILVERGEL (ELTA) 45 ML 1 APPLIC TOPICAL (13:28)
[2020-11-04] MEDS: MORPHINE SULFATE INJ (*CRX) 50 MG in SODIUM CHLORIDE 0.9% IV 95 ML IV CONT (13:29)
[2020-11-04 20:00] VITALS: O2SAT 98
[2020-11-05 08:00] VITALS: O2SAT 100
[2020-11-05] MEDS: SILVERGEL (ELTA) 45 ML 1 APPLIC TOPICAL (08:46)
[2020-11-05] MEDS: ATROPINE SULFATE 1% OPHTH SOLN 5 ML BOTTLE 2 DROP SUBLINGUAL (10:15)
--- NOTE | 2020-11-05 12:39 | P.HP_ITS ---
H&P: HPI History of Present Illness Date/Time: 11/05/20 12:40 Chief Complaint: No complains. Narrative: Rayshawn Hay is a 80 year old male with advanced Dementia, patient was brought to the hospital due to overall decline, not doing well, renal failure, A. fib with RVR, Pneumonia, AMS. Patient was initially being treated but took a turn for the worse with acute respiratory failure. Daughter was called and decision was made to place the patient on Hospice with comfort care measures only. Daughter is now at bedside. Patient Review of Systems Review of Systems: Narrative: Unable to obtain as patient is sedated. [facility] Past Medical History Medical History (Updated 11/04/20 @ 17:17 by Meghana Pink MD) Atrial fibrillation with rapid ventricular response BPH w urinary obs/LUTS Dementia Hypertension Wounds, multiple Surgical History Surgical History (Updated 10/26/20 @ 14:32 by Joao Mccarthy MD) Hx of eye surgery Left with chronic dilation Family History Family History Mother Heart disease Diabetes mellitus Social History Social History (Updated 10/26/20 @ 14:37 by Joao Mccarthy MD) Social History: Patient is a lifelong nonsmoker. . Lives in senior care x 18 months. No drug use or hx of alcohol abuse. Full code. No POA but Kamilla Marie is surrogate. Smoking status: Unknown if ever smoked Second hand tobacco smoke exposure: No Alcohol intake: unknown Substance use: unknown Gender identity (if verbalized by the patient): Male Spiritual care concerns: No Meds Home Medications and Allergies Home Medications Medication Instructions Recorded Confirmed Type No Home Medications 11/05/20 11/05/20 History Allergies Allergy/AdvReac Type Severity Reaction Status Date / Time No Known Allergies Allergy Verified 11/04/20 12:51 Vital Signs Vital Signs - 24 hr 11/04/20 20:00 11/05/20 08:00 Pulse Oximetry 98 100 Exam Narrative: Exam Narrative: Patient is in bed under sedation. Const: General: ill appearing and other (Comfortable.) Resp: Effort & Inspection: normal respiratory effort and other Cardio: Rate: regular rate Rhythm: regular rhythm GI: GI Palp: Yes Soft to palpation and Yes No hepatosplenomegaly present Skin: General skin exam: pallor Neuro: General: other (sedated.) Extrem: General: no pedal edema Assessment and Plan Assessment and plan (1) Acute respiratory failure with hypoxia: Code(s): J96.01 - Acute respiratory failure with hypoxia Status: Acute Assessment and Plan: Comfort care measures only. Hospice on board. (2) Dementia: Code(s): F03.90 - Unspecified dementia without behavioral disturbance Status: Acute Assessment and Plan: Comfort care measures only. (3) Atrial fibrillation with rapid ventricular response: Code(s): I48.91 - Unspecified atrial fibrillation Status: Acute Assessment and Plan: Comfort care measures only. (4) Hypernatremia: Code(s): E87.0 - Hyperosmolality and hypernatremia Status: Acute Assessment and Plan: Comfort care measures only.
[2020-11-05] MEDS: MORPHINE SULFATE INJ (*CRX) 50 MG in SODIUM CHLORIDE 0.9% IV 95 ML IV CONT (13:55)
[2020-11-06] MEDS: SILVERGEL (ELTA) 45 ML 1 APPLIC TOPICAL (09:29)
[2020-11-06 09:30] VITALS: O2SAT 100
[2020-11-06] MEDS: LORazepam INJ (*CRX) 2 MG/ML VIAL 0.5 MG IV PUSH (09:36)
[2020-11-06] MEDS: MORPHINE SULFATE INJ (*CRX) 50 MG in SODIUM CHLORIDE 0.9% IV 95 ML IV CONT (13:35)
--- NOTE | 2020-11-06 16:58 | PM.IMPN ---
Progress Note: A&P Assessment and Plan (1) Acute respiratory failure with hypoxia: Code(s): J96.01 - Acute respiratory failure with hypoxia Status: Acute Assessment and Plan: On comfort care measures only. (2) Dementia: Code(s): F03.90 - Unspecified dementia without behavioral disturbance Status: Acute Assessment and Plan: On comfort care measures only. (3) Atrial fibrillation with rapid ventricular response: Code(s): I48.91 - Unspecified atrial fibrillation Status: Acute Assessment and Plan: On comfort care measures only. Subjective Date/time seen: 11/06/20 16:58 Resting comfortably in bed. Daughter at bed side. Review of Systems Review of Systems: Narrative: Patient is on comfort care measures only. Exam Narrative: Exam Narrative: Lying comfortably in bed. Const: General: comfortable, no acute distress and other (Sedated) HENMT: Head: normal to inspection and normocephalic Neck: Neck: supple and no JVD Resp: Effort & Inspection: normal respiratory effort Cardio: Rate: regular rate Rhythm: regular rhythm GI: Inspection: normal to inspection Skin: General skin exam: pallor Neuro: General: other (Sedated.) Objective Data Vital Signs Vital Signs: Vital Signs - 24 hr 11/06/20 09:30 Pulse Oximetry 100 Intake/Output Intake/Output: Intake & Output 11/03/20 11/04/20 11/05/20 11/06/20 23:59 23:59 23:59 23:59 Intake Total 100 24 Output Total 800 Balance -700 24 Meds/Results Medications: Active Medications Generic Name Dose Route Start Last Admin Trade Name Freq PRN Reason Stop Dose Admin Acetaminophen 650 mg 11/04/20 13:06 Acetaminophen 650 Mg Suppository RECTAL Q6H PRN Fever Atropine Sulfate 2 drop 11/04/20 13:06 11/05/20 10:15 Atropine Sulfate 1% Ophth Soln 5 Ml Bottle SUBLINGUAL 2 drop Q2H PRN Administration SECRETIONS Morphine Sulfate 50 mg/ Sodium 100 mls @ 2 mls/hr 11/04/20 13:30 11/06/20 13:35 Chloride IV CONT 1 mg/hr .Q24H NELSON 2 mls/hr Administration 1 MG/HR Lorazepam 0.5 mg 11/04/20 13:06 11/06/20 09:36 Lorazepam Inj (*Crx) 2 Mg/Ml Vial IV PUSH 0.5 mg Q2H PRN Administration AGITATION Silver Nitrate 1 applic 11/04/20 13:00 11/06/20 09:29 Silvergel (Elta) 45 Ml TOPICAL 1 applic DAILY NELSON Administration Wound Care/Dressing Products 1 each 11/04/20 13:00 11/06/20 09:28 Foam Bandage (Mepilex 4x4) Bandage TOPICAL Not Given DAILY NELSON Wound Care/Dressing Products 1 each 11/04/20 13:00 11/06/20 09:29 Foam Bandage (Mepilex 4x4) Bandage TOPICAL 1 each DAILY NELSON Administration
[2020-11-06 20:00] VITALS: O2SAT 100
[2020-11-07] VITALS (7 sets, daily range): BP systolic 82–115; BP diastolic 48–74; PULSE 58–68; RESP 12–14; TEMP 36.1–38.3; O2SAT 82–100
[2020-11-07] MEDS: SILVERGEL (ELTA) 45 ML 1 APPLIC TOPICAL (09:35)
[2020-11-07] MEDS: MORPHINE SULFATE INJ (*CRX) 50 MG in SODIUM CHLORIDE 0.9% IV 95 ML IV CONT (15:01)
[2020-11-07] MEDS: ACETAMINOPHEN 650 MG SUPPOSITORY RECTAL (21:22)
[2020-11-08] MEDS: LORazepam INJ (*CRX) 2 MG/ML VIAL 0.5 MG IV PUSH (04:51)
[2020-11-08] MEDS: ATROPINE SULFATE 1% OPHTH SOLN 5 ML BOTTLE 2 DROP SUBLINGUAL ×2 (04:51→20:44)
[2020-11-08] MEDS: SILVERGEL (ELTA) 45 ML 1 APPLIC TOPICAL (08:31)
[2020-11-08] MEDS: MORPHINE SULFATE INJ (*CRX) 50 MG in SODIUM CHLORIDE 0.9% IV 95 ML IV CONT (13:25)
--- NOTE | 2020-11-08 15:24 | PM.IMPN ---
Progress Note: A&P Assessment and Plan (1) Acute respiratory failure with hypoxia: Code(s): J96.01 - Acute respiratory failure with hypoxia Status: Acute Assessment and Plan: Comfort care measures only Subjective Date/time seen: 11/08/20 15:24 Patient is on comfort care measures only. Exam Narrative: Exam Narrative: On comfort care measures only. NAD, comfortable Objective Data Vital Signs Vital Signs: Vital Signs - 24 hr 11/07/20 18:01 11/07/20 21:22 11/07/20 21:32 Temperature 99.2 F 100.1 F H Pulse Rate 58 L Respiratory Rate 12 12 Blood Pressure 82/48 L Pulse Oximetry 98 98 11/07/20 21:33 11/07/20 22:22 Temperature 100.1 F H 99.2 F Pulse Rate 68 Respiratory Rate 12 Blood Pressure 101/50 L Pulse Oximetry 82 L Intake/Output Intake/Output: Intake & Output 11/05/20 11/06/20 11/07/20 11/08/20 23:59 23:59 23:59 23:59 Intake Total 100 24 100.0 100 Output Total 800 125 600 Balance -700 -101 100.0 -500 Meds/Results Medications: Active Medications Generic Name Dose Route Start Last Admin Trade Name Freq PRN Reason Stop Dose Admin Acetaminophen 650 mg 11/04/20 13:06 11/07/20 21:22 Acetaminophen 650 Mg Suppository RECTAL 650 mg Q6H PRN Administration Fever Atropine Sulfate 2 drop 11/04/20 13:06 11/08/20 04:51 Atropine Sulfate 1% Ophth Soln 5 Ml Bottle SUBLINGUAL 2 drop Q2H PRN Administration SECRETIONS Morphine Sulfate 50 mg/ Sodium 100 mls @ 2 mls/hr 11/04/20 13:30 11/08/20 13:25 Chloride IV CONT 1 mg/hr .Q24H NELSON 2 mls/hr Administration 1 MG/HR Lorazepam 0.5 mg 11/04/20 13:06 11/08/20 04:51 Lorazepam Inj (*Crx) 2 Mg/Ml Vial IV PUSH 0.5 mg Q2H PRN Administration AGITATION Silver Nitrate 1 applic 11/04/20 13:00 11/08/20 08:31 Silvergel (Elta) 45 Ml TOPICAL 1 applic DAILY NELSON Administration Wound Care/Dressing Products 1 each 11/04/20 13:00 11/08/20 08:30 Foam Bandage (Mepilex 4x4) Bandage TOPICAL 1 each DAILY NELSON Administration Wound Care/Dressing Products 1 each 11/04/20 13:00 11/08/20 08:30 Foam Bandage (Mepilex 4x4) Bandage TOPICAL 1 each DAILY NELSON Administration
[2020-11-08 16:11] VITALS: BP 96/61; PULSE 124; RESP 14; TEMP 36.9; O2SAT 96
[2020-11-08 21:36] VITALS: RESP 14; O2SAT 90
[2020-11-09] MEDS: ATROPINE SULFATE 1% OPHTH SOLN 5 ML BOTTLE 2 DROP SUBLINGUAL (05:57)
[2020-11-09] MEDS: SILVERGEL (ELTA) 45 ML 1 APPLIC TOPICAL (08:37)
[2020-11-09] MEDS: MORPHINE SULFATE INJ (*CRX) 50 MG in SODIUM CHLORIDE 0.9% IV 95 ML IV CONT (14:00)
--- NOTE | 2020-11-09 16:28 | PM.IMPN ---
Progress Note: A&P Assessment and Plan (1) Acute respiratory failure with hypoxia: Code(s): J96.01 - Acute respiratory failure with hypoxia Status: Acute Assessment and Plan: Comfort care measures only Supplemental O2. (2) Wounds, multiple: Code(s): T07.XXXA - Unspecified multiple injuries, initial encounter Status: Acute Assessment and Plan: Comfort care measures only. (3) Sepsis: Code(s): A41.9 - Sepsis, unspecified organism Status: Acute Assessment and Plan: Comfort care measures only (4) Atrial fibrillation with rapid ventricular response: Code(s): I48.91 - Unspecified atrial fibrillation Status: Acute Assessment and Plan: Comfort care measures only. Subjective Date/time seen: 11/09/20 16:28 Patient is unresponsive on Morphine drip. Review of Systems Review of Systems: Narrative: Patient on comfort care measures only. Exam Narrative: Exam Narrative: Patient is on comfort care measures only. Const: General: comfortable Objective Data Vital Signs Vital Signs: Vital Signs - 24 hr 11/08/20 21:36 Respiratory Rate 14 Pulse Oximetry 90 Intake/Output Intake/Output: Intake & Output 11/06/20 11/07/20 11/08/20 11/09/20 23:59 23:59 23:59 23:59 Intake Total 24 100.0 100 55.0 Output Total 125 600 Balance -101 100.0 -500 55.0 Meds/Results Medications: Active Medications Generic Name Dose Route Start Last Admin Trade Name Freq PRN Reason Stop Dose Admin Acetaminophen 650 mg 11/04/20 13:06 11/07/20 21:22 Acetaminophen 650 Mg Suppository RECTAL 650 mg Q6H PRN Administration Fever Atropine Sulfate 2 drop 11/04/20 13:06 11/09/20 05:57 Atropine Sulfate 1% Ophth Soln 5 Ml Bottle SUBLINGUAL 2 drop Q2H PRN Administration SECRETIONS Morphine Sulfate 50 mg/ Sodium 100 mls @ 4 mls/hr 11/04/20 13:30 11/09/20 14:06 Chloride IV CONT 2 mg/hr .Q24H NELSON 4 mls/hr Infusion Lorazepam 0.5 mg 11/04/20 13:06 11/08/20 04:51 Lorazepam Inj (*Crx) 2 Mg/Ml Vial IV PUSH 0.5 mg Q2H PRN Administration AGITATION Silver Nitrate 1 applic 11/04/20 13:00 11/09/20 08:37 Silvergel (Elta) 45 Ml TOPICAL 1 applic DAILY NELSON Administration Wound Care/Dressing Products 1 each 11/04/20 13:00 11/09/20 08:37 Foam Bandage (Mepilex 4x4) Bandage TOPICAL 1 each DAILY NELSON Administration Wound Care/Dressing Products 1 each 11/04/20 13:00 11/09/20 08:37 Foam Bandage (Mepilex 4x4) Bandage TOPICAL 1 each DAILY NELSON Administration
[2020-11-10] VITALS (7 sets, daily range): BP systolic 78; BP diastolic 64; PULSE 80; RESP 14–16; TEMP 36.4–39.4; O2SAT 93
[2020-11-10] MEDS: SILVERGEL (ELTA) 45 ML 1 APPLIC TOPICAL (08:11)
[2020-11-10] MEDS: ACETAMINOPHEN 650 MG SUPPOSITORY RECTAL ×2 (10:27→17:28)
--- NOTE | 2020-11-10 10:36 | PC.NURSE ---
Analy [place] hospice nurse, spoke with Dr. Zavaleta about increasing morphine dose to 3mg/6mls per hr. Order increased.
[2020-11-10] MEDS: MORPHINE SULFATE INJ (*CRX) 50 MG in SODIUM CHLORIDE 0.9% IV 95 ML 6 MG IV CONT (13:18)
--- NOTE | 2020-11-10 17:03 | PM.IMPN ---
Progress Note: A&P Assessment and Plan (1) Acute respiratory failure with hypoxia: Code(s): J96.01 - Acute respiratory failure with hypoxia Status: Acute Assessment and Plan: Secondary to pneumonia and sepsis. Comfort care measures only Supplemental O2. (2) Wounds, multiple: Code(s): T07.XXXA - Unspecified multiple injuries, initial encounter Status: Acute Assessment and Plan: Comfort care measures only. (3) Sepsis: Code(s): A41.9 - Sepsis, unspecified organism Status: Acute Assessment and Plan: Finish course of antibiotics with initial improvement but continued downhill course and family elected to proceed to hospice (4) Atrial fibrillation with rapid ventricular response: Code(s): I48.91 - Unspecified atrial fibrillation Status: Acute Assessment and Plan: Ventricular response still controlled off medication. (5) DVT prophylaxis: Code(s): Z29.9 - Encounter for prophylactic measures, unspecified Status: Acute Assessment and Plan: None with hospice and off his warfarin Subjective Date/time seen: 11/10/20 17:03 Interval history: Date of visit 11/10. 80-year-old demented male admitted with sepsis secondary to probably urinary tract infection and pneumonia. Responded well to treatment with improving mental status with hydration and antibiotics. But never totally returned to his baseline with difficulty swallowing in taking medication and family decided to proceed to hospice. Exam Narrative: Exam Narrative: Blood pressure 78/64 pulse is 80 respirations 20 per minute saturating 93% on 3 L and was febrile at 383 Lungs are clear CV regular rate rhythm Abdomen benign Extremities without edema Neuro unresponsive Objective Data Vital Signs Vital Signs: Vital Signs - 24 hr 11/10/20 08:05 11/10/20 08:52 11/10/20 10:27 Temperature 36.4 C L 39.1 C H Pulse Rate 80 Respiratory Rate 16 14 Blood Pressure 78/64 L Pulse Oximetry 93 11/10/20 11:27 11/10/20 11:51 Temperature 38.7 C H 38.7 C H Pulse Rate Respiratory Rate Blood Pressure Pulse Oximetry Intake/Output Intake/Output: Intake & Output 11/07/20 11/08/20 11/09/20 11/10/20 23:59 23:59 23:59 23:59 Intake Total 100.0 100 55.0 90 Output Total 600 200 Balance 100.0 -500 -145.0 90 Meds/Results Medications: Active Medications Generic Name Dose Route Start Last Admin Trade Name Freq PRN Reason Stop Dose Admin Acetaminophen 650 mg 11/04/20 13:06 11/10/20 10:27 Acetaminophen 650 Mg Suppository RECTAL 650 mg Q6H PRN Administration Fever Atropine Sulfate 2 drop 11/04/20 13:06 11/09/20 05:57 Atropine Sulfate 1% Ophth Soln 5 Ml Bottle SUBLINGUAL 2 drop Q2H PRN Administration SECRETIONS Morphine Sulfate 50 mg/ Sodium 100 mls @ 6 mls/hr 11/04/20 13:30 11/10/20 13:18 Chloride IV CONT 3 mg/hr .A80H61P NELSON 6 mls/hr Administration Lorazepam 0.5 mg 11/04/20 13:06 11/08/20 04:51 Lorazepam Inj (*Crx) 2 Mg/Ml Vial IV PUSH 0.5 mg Q2H PRN Administration AGITATION Silver Nitrate 1 applic 11/04/20 13:00 11/10/20 08:11 Silvergel (Elta) 45 Ml TOPICAL 1 applic DAILY NELSON Administration Wound Care/Dressing Products 1 each 11/04/20 13:00 11/10/20 08:11 Foam Bandage (Mepilex 4x4) Bandage TOPICAL 1 each DAILY NELSON Administration Wound Care/Dressing Products 1 each 11/04/20 13:00 11/10/20 08:12 Foam Bandage (Mepilex 4x4) Bandage TOPICAL 1 each DAILY NELSON Administration
--- NOTE | 2020-11-10 19:30 | PC.NURSE ---
At 1930, this RN was notified by Kamilla, pt daughter, of pt absence of respirations. Upon assessment, there was no heart or lung sounds. Camelia Akins RN, charge nurse, was then called and notified.
--- NOTE | 2020-11-11 08:47 | DS_ITS ---
Summary This report was moved to the correct visit on November 30, 2020. Original report was signed by Dr. Lester Zavaleta on November 11, 2020. Discharge Sum: Prov Provider Primary care physician: Hector Workman MD Admitting provider: Xavier Mccarthy MD Consults: 10/26/20 Wound/ET Consult Routine Reason for Consult:: left lateral foot wound 11/03/20 16:49 Care Coordination Consult Routine Comment: [facility] consulted on 11/03/20 Reason for Consult:: Hospice Referral Discharge Sum: Diag Contributing Factors (1) Dementia: (2) Kidney failure: (3) Hypernatremia: (4) Urinary tract infection associated with indwelling urethral catheter: (5) Pneumonia: (6) Atrial fibrillation with rapid ventricular response: (7) Hypertension: (8) Acute respiratory failure with hypoxia: Discharge Sum: Summary Date and Time Date of admission: 10/26/20 12:24 Date of : 11/10/20 Summary Details: Date of and last visit 11/10/2020. Date of this note 11/11/2020 80-year-old demented male originally admitted to the hospital 10/26/2020 with sepsis from urinary tract infection and pneumonia. Was dehydrated with hypernatremia and responded to IV fluids and IV antibiotics with much improvement and even passed a swallow test. He took a turn for the worse though on the and 03 of November and after discussion with his POA daughter it was decided that patient would be placed in hospice. He had a slow downhill course and late on evening of the . Cause of dementia and possible recurrent aspiration pneumonia Additional Data Attending physician: Meghana Pink MD Report Initialized date/time: Lester Zavaleta MD 11/11/201821 Electronically signed by: Lester Zavaleta MD 11/11/201821 [facility]
== END 2020-11-10 19:30 | disposition expired | DRG 951 ==
PROVIDERS: Admitting Provider Internal Medicine; PCP Family Medicine; Visit Provider Internal Medicine
DX: Z51.5 Encounter for palliative care (principal); J96.01 Acute respiratory failure with hypoxia; J69.0 Pneumonitis due to inhalation of food and vomit; A41.9 Sepsis, unspecified organism; E87.0 Hyperosmolality and hypernatremia; T83.511A Infection and inflammatory reaction due to indwelling urethral catheter, initial encounter; N39.0 Urinary tract infection, site not specified; F03.90 Unspecified dementia, unspecified severity, without behavioral disturbance, psychotic disturbance, mood disturbance, and anxiety; I48.91 Unspecified atrial fibrillation; I10 Essential (primary) hypertension; T07.XXXA Unspecified multiple injuries, initial encounter; N40.1 Benign prostatic hyperplasia with lower urinary tract symptoms
CPT/HCPCS: A9270; J2060; J2270